=== PATIENT | female | born 1970 | race Caucasian/White ===

== ENCOUNTER 2017-02-17 20:17 | Observation (INO) | payer SELFPAY ==
[2017-02-17] MEDS ORDERED: Sodium Chloride 0.9% 1,000 ML ONE (20:34)
[2017-02-17] MEDS ORDERED: ONDANSETRON 4 MG/2 ML VIAL ONE (20:34)
[2017-02-17] MEDS ORDERED: ONDANSETRON 4 MG/2 ML VIAL IVP ONE (20:35)
[2017-02-17] MEDS ORDERED: HYDROmorphone 2 MG/1 ML IVP ONE (20:35)
[2017-02-17] MEDS ORDERED: Sodium Chloride 0.9% 1,000 ML PRIMARY IV ONE (20:49)
[2017-02-17] MEDS ORDERED: NORMAL SALINE 10 ML SYRINGE FLUSH IVP PRN (20:49)
[2017-02-17 20:57] LABS: BASOPHILS # (AUTO) 0.04 10*3/UL; BASOPHILS % (AUTO) 0.2 % (0-1); EOSINOPHILS # (AUTO) 0.51 10*3/UL; EOSINOPHILS % (AUTO) 2.9 % (0-8); HEMOGLOBIN 15.2 g/dL (12.0-16.0); LYMPHOCYTES # (AUTO) 3.59 10*3/uL; MEAN CORPUSCULAR HEMOGLOBIN 28.7 PG (27-31); MEAN CORPUSCULAR HGB CONC 33.8 g/dL (33-37); MEAN CORPUSCULAR VOLUME 85.1 FL (81-99); MONOCYTES # (AUTO) 0.76 10*3/UL (0.3-0.8); MONOCYTES % (AUTO) 4.3 % (5-15); NEUTROPHILS # (AUTO) 12.56 10*3/UL; NEUTROPHILS % (AUTO) 71.8 % (50-80); RED BLOOD COUNT 5.29 10^6/uL (4.20-5.40)
[2017-02-17 20:59] LABS: PLATELET MORPHOLOGY COMMENT NORMAL MORPHOLOGY (NORM); RBC MORPHOLOGY COMMENT NORMAL MORPHOLOGY (NORM); WBC MORPHOLOGY COMMENT NORMAL MORPHOLOGY (NORM)
[2017-02-17 21:03] LABS: BLOOD UREA NITROGEN 10 mg/dL (7-22); BUN/CREATININE RATIO 16.66 (6-20); CALCIUM 10.1 mg/dL (8.7-10.7); EST GLOMERULAR FILTRATION > 60 (>60 ml/min/1.73m(2)); LIPASE 435 IU/L (23-300); SERUM ALBUMIN 5.3 g/dL (3.5-4.8)
[2017-02-17] MEDS ORDERED: HYDROmorphone 2 MG/1 ML ONE (21:05)
[2017-02-17 21:51] LABS: BILIRUBIN,URINE NEGATIVE (NEG); CLARITY,URINE CLEAR (CLEAR); COLOR,URINE YELLOW; GLUCOSE, URINE (UA) NEGATIVE (NEG); NITRATE,URINE NEGATIVE (NEG); OCCULT BLOOD,URINE NEGATIVE (NEG); PH,URINE 5.5 (5.0-8.5); PROTEIN,URINE NEGATIVE (NEG); URINE SAMPLE TYPE VOIDED SPECIMEN; UROBILINOGEN,URINE 0.2 EU/dL (0.2)
--- NOTE | 2017-02-17 21:54 | DI ---
HISTORY: Abdominal pain. COMPARISON: None available. TECHNIQUE: Multiple helically acquired CT images were obtained through the abdomen and pelvis follow ing the administration of oral and intravenous contrast. FINDINGS: Examination demonstrate fluid throughout the colon. The liver, gallbladder, spleen, adrenals, and kidneys are unremarkable. The urinary bladder is unremarkable. The appendix is normal. There is no significant mesenteric or retroperitoneal lymphadenopathy. The lung bases are clear. Skeletal structures demonstrate some mild degenerative changes at L5/S1. The uterus and ovaries are not well evaluated on this examination. There is a trace amount of free f luid within the deep pelvis adjacent to the right adnexa. IMPRESSION: 1. Trace amount of fluid within the deep pelvis adjacent to the right adnexa most likely representing a recently ruptured right ovarian cyst. 2. Fluid throughout the colon most likely representing diarrhea. NOTIFICATION: The above findings were phoned to Bhavik Holley at 12:00 AM EST on 02/18/2017.
--- NOTE | 2017-02-17 23:15 | DI ---
HISTORY: Right upper quadrant pain. Pancreatitis. TECHNIQUE: Sonographic images of the abdomen were obtained and submitted for interpretation. FINDINGS: There is borderline hepatomegaly. The liver exhibits homogeneous echotexture without discr ete mass. There is no intrahepatic biliary dilatation. The gallbladder is unremarkable. No cholelithiasis is detected. There is no gallbladder wall thickeni ng. No pericholecystic fluid or sonographic García's sign is present. The common duct is not visualiz ed due to shadowing bowel gas. The right kidney exhibits normal sonographic morphology. It measures 13.2 cm in length with no eviden ce of hydronephrosis or shadowing stones. Imaged portions of the pancreas are unremarkable. The abdominal aorta exhibits normal caliber. IMPRESSION: 1. Borderline hepatomegaly in an otherwise unremarkable exam. NOTE: The interpreting Radiologist was not present at the time of ultrasound interrogation.
[2017-02-18] MEDS ORDERED: Insulin Sliding Scale Protocol SUBCUT PRN (00:36)
[2017-02-18] MEDS ORDERED: DEXTROSE 50%-WATER SYRINGE 50 ML SYRINGE IVP PRN (00:36)
[2017-02-18] MEDS ORDERED: NORMAL SALINE 10 ML SYRINGE FLUSH IVP PRN (00:36)
[2017-02-18] MEDS ORDERED: ONDANSETRON 4 MG/2 ML VIAL IVP PRN (00:36)
[2017-02-18] MEDS ORDERED: HYDROmorphone 2 MG/1 ML IVP PRN (00:36)
[2017-02-18] MEDS ORDERED: LIDOCAINE W/ SODIUM BICARB 0.5 ML SYR SUBD PRN (00:36)
[2017-02-18] MEDS ORDERED: Glucagon Inj Vial 1 MG/ML VIAL IM PRN (00:36)
[2017-02-18] MEDS ORDERED: DEXTROSE 31 GM GEL PO PRN (00:36)
[2017-02-18] MEDS ORDERED: fentaNYL Inj 100 MCG/2 ML VIAL IVP PRN (00:56)
[2017-02-18] MEDS: Sodium Chloride 0.9% 1,000 ML PRIMARY IV SCH ×3 (01:19→17:53)
--- NOTE | 2017-02-18 02:33 | PDOC ---
Abdomen/Flank HPI - General Chief Complaint: Abdomen Pain Stated Complaint: Abdomen pain Date Seen by Provider: 02/17/17 Time Seen by Provider: 20:25 Source: POSITIVE: Patient, Spouse Exam Limitations: POSITIVE: No limitations Nurse's Notes Reviewed & Considered: Yes - History of Present Illness Initial Comments: The patient is a 46 year old female. Around 4 PM this afternoon she developed upper abdominal pain, primarily in the right upper abdominal quadrant and epigastrium. Initially the pain was intermittent but it has over the last few hours become persistent and more severe. She states she has also had diarrhea. Nausea but no vomiting. She's had a bilateral tubal ligation and a bladder sling. History of type II diabetes mellitus for which she takes metformin and Trulicity. She last ate at noon and had chicken and rice at that time. No fevers or chills. She takes simvastatin for hypercholesterolemia and losartan for hypertension. She also takes potassium supplements. Body Location Affected: REPORTS: Abdomen Timing: REPORTS: Gradual, Getting Worse Duration: <24 hours (Approximately 7 hours) Severity: Moderate Quality: REPORTS: Aching, "Pain" Abdominal Pain Onset Location: REPORTS: RUQ, Epigastric Abdominal Pain Radiation: REPORTS: No radiation Context: REPORTS: None Modifying Factors: improves with: Nothing Associated Symptoms: REPORTS: Nausea, Diarrhea. DENIES: Denies symptoms, Back pain, Bloody Emesis, Chest pain, Coffee Grounds Emesis, Chills, Diaphoresis, Fever, Fatigue, Headache, Heartburn, Loss of Appetite, Rash, Shortness of breath , Swelling/mass in abdomen, Syncope, Testicular Pain, Vomiting, Weakness, Grossly Bloody Diarrhea, Constipation, Dysuria, Incontinent Stool, Incontinent Urine, Mucous Diarrhea, Difficulty Walking, Dizziness, Light Headedness, Numbness, Other Similar Symptoms Previously: No Recent Care Received: REPORTS: Denies Any Prior Injuries Related to Current Complaint?: No - Patient Home Medications Home Medications: Home Medications Cranberry Extract [Cranberry] 1 tab PO QD cap 05/07/15 [place]-3 Fatty Acids/Fish Oil [[place] 3 Fish Oil Softgel] 2 each PO QD cap Vit W-Ca,Fe,FA(<1 mg) [ Vitamins] 1 tab PO DAILY tab 05/07/15 Dulaglutide [Trulicity] 11/28/15 Blood Sugar Diagnostic [Glucose Test Strip] 1 each IN QID #360 strip 08/15/16 Losartan Potassium 1 tab PO DAILY #90 tab 07/07/16 Metformin HCl 1.5 tab PO BID #270 tab 07/07/16 Simvastatin 1 tab PO QPM #90 tab 07/07/16 - Patient Allergies Allergies/Adverse Reactions: Allergies Allergy/AdvReac Type Severity Reaction Status Date / Time morphine Allergy Severe HIVES Verified 02/17/17 20:24 Sulfa (Sulfonamide Allergy Intermediate HIVES Verified 02/17/17 20:24 Antibiotics) sitagliptin phosphate AdvReac Mild NAUSEA Verified 02/17/17 20:24 [From Jw] BANDAIDS Allergy Mild RASH Uncoded 02/17/17 20:24 Past Medical History - heen HEENT History: Denies History Cardiovascular History: Hypertension Respiratory History: Denies History Gastrointestinal History: Denies History Genitourinary History: Other (please comment) Additional Genitourinary History: PT STATES SHE HAS HAD SEVERAL UTI Endocrine History: Type 2 Diabetes (oral) Musculoskeletal History: Denies History Neurological History: Denies History Blood Disorders: Denies History Psychiatric History: Denies History History of Sexually Transmitted Diseases: No Female Reproductive History: Denies History Obstetrical History: Denies History Cancer History: Denies History In Past Year Been Physically Harmed or Verbally Threatened: No History of MDRO: No History of Other Communicable Diseases: No Tobacco Use: Never Smoker Alcohol Use: None Substance Use Type: None Previous Surgical History: Yes Type / Date of Surgery: BLADDER SLING AND TUBAL LIGATION Anesthesia Reactions: No Malignant Hyperthermia: No Family History of Malignant Hyperthermia: No Significant Family History: No pertinent family hx Past Medical History Reviewed: Reviewed - No Changes ROS - Limitations ROS Limitations: No Limitations Constitution: REPORTS: Denies Symptoms Cardiovascular: REPORTS: Denies Cardiac Symptoms Respiratory: REPORTS: Denies Resp Symptoms Neurological: REPORTS: Denies Neuro Symptoms Gastrointestinal: REPORTS: Abdominal Pain, Nausea, Diarrhea Endocrine: REPORTS: Denies Symptoms Musculoskeletal: REPORTS: Denies MS Symptoms Genitourinary: REPORTS: Denies Symptoms Eyes: REPORTS: Denies Symptoms ENT: REPORTS: Denies Symptoms Skin: REPORTS: Denies Skin Symptoms Lympathic: REPORTS: Denies Lympathic Symptoms Immunologic: POSITIVE: Denies Symptoms Psychiatric: POSITIVE: Denies Psych Symptoms Abdominal/Flank Pain PE - General Appearance General Appearance: POSITIVE: Alert, Cooperative, No Evidence of Trauma, Moderate Distress - HEENT HEENT: POSITIVE: Head Inspection Nml, Eyes Inspection Nml, Ears Inspection Nml, Nose Inspection Nml, Oral/Dental Inspect. Nml, Pharynx Inspect. Nml, PERRL, EOMI - Neck Neck: POSITIVE: Normal Inspection, No Apparent Injury - Respiratory Respiratory: POSITIVE: No Respiratory Distress, Breath Sounds Normal, Chest Non- Tender - Cardiovascular Cardiovascular: POSITIVE: Regular Rate and Rhythm, Heart Sounds Normal, Equal Pulses, Strong Pulses Peripheral Pulses: Radial (R): 2+, Radial (L): 2+ - Chest Chest: POSITIVE: Non Tender - Abdomen Abdomen: Soft: (All Quadrants), Normal Bowel Sounds: (All Quadrants), Denies Tenderness: (LLQ), (LUQ), No Splenomegaly: (All Quadrants), No Hepatomegaly: ( All Quadrants), No Guarding: (All Quadrants), No Rebound: (All Quadrants), No Palpable Pulse: (All Quadrants), No Palpabale Mass: (All Quadrants), No Distention: (All Quadrants), No Rigidity: (All Quadrants), Tenderness Noted: ( RUQ) (and epigastrium) Additional Abdominal Details: Abdominal examination shows bowel sounds to be active. Patient does express pain on direct palpation over the right upper quadrant of the abdomen and epigastrium. No masses, organomegaly or rebound. - Back Back: POSITIVE: Normal Inspection - Skin Skin: POSITIVE: Intact, Normal For Race, Warm, Dry, No Rash - Extremities Extremity: Non-Tender: (All Extremities), Normal ROM: (All Extremities), Normal Inspection: (All Extremities) - Neurological Neurological: POSITIVE: Oriented X3, last trimmer Normal As Tested, Motor Normal, Sensation Normal, 5, 6 - Psychological Psychiatric: POSITIVE: Affect Appropriate, Mood Appropriate Images - Complete Complete: 1 - Area of pain Abdomen Progress - Results Reviewed by me Xrays/CTs/US Reviewed by me: Yes Discussed with Radiologist: Yes Radiology Findings: CT scan of abdomen and pelvis shows no definite abnormality except possibly a ruptured ovarian cyst. Right upper quadrant ultrasound shows no gallstones. Lab Results Reviewed: Yes (amylase, lipase, and white blood cell count all elevated) Lab Results:: Laboratory Results 02/17/17 02/17/17 Range/Units 20:35 21:48 WBC 17.51 H (4.8-10.8) 10^3/uL RBC 5.29 (4.20-5.40) 10^6/uL Hgb 15.2 (12.0-16.0) g/dL Hct 45.0 (37.0-47.0) % MCV 85.1 (81-99) FL MCH 28.7 (27-31) PG MCHC 33.8 (33-37) g/dL RDW Std Deviation 43.1 (39-50) fL RDW Coeff of [place]rend[place] 14.0 (11.5-14.5) % Plt Count 357 H (140-350) 10*3/uL MPV 10.0 (7.4-12.2) FL Immature Gran % (Auto) 0.3 (0-5) % Neut % (Auto) 71.8 (50-80) % Lymph % (Auto) 20.5 (10-50) % [place] % (Auto) 4.3 L (5-15) % Eos % (Auto) 2.9 (0-8) % Baso % (Auto) 0.2 (0-1) % Immature Gran # (Auto) 0.05 10*3/UL Neut # (Auto) 12.56 10*3/UL Lymph # (Auto) 3.59 10*3/uL [place] # (Auto) 0.76 (0.3-0.8) 10*3/UL Eos # (Auto) 0.51 10*3/UL Baso # (Auto) 0.04 10*3/UL WBC Morphology Comment Normal morphology (NORM) Plt Morphology Comment Normal morphology (NORM) RBC Morph Comment Normal morphology (NORM) Sodium 139 (135-145) meq/L Potassium 3.9 (3.8-5.2) meq/L Chloride 99 (98-112) meq/L Carbon Dioxide 23 (23-33) meq/L Anion Gap 17 (5-20) BUN 10 (7-22) mg/dL Creatinine 0.6 (0.50-1.20) mg/dL Estimated GFR > 60 (>60 ml/min/1.73m(2)) BUN/Creatinine Ratio 16.66 (6-20) Glucose 138 H (78-110) mg/dL Calculated Osmolality 288.0 (267-292) mOsm/kg Calcium 10.1 (8.7-10.7) mg/dL Total Bilirubin 0.6 (0.3-1.2) mg/dL AST 23 (8-39) IU/L ALT 24 (9-52) IU/L Alkaline Phosphatase 80 (38-126) IU/L Total Protein 9.6 H (6.1-8.0) g/dL Albumin 5.3 H (3.5-4.8) g/dL Globulin 4.3 H (2.50-4.10) g/dL Albumin/Globulin Ratio 1.20 L (1.3-2.0) mg/g Amylase 113 H (30-110) U/L Lipase 435 H (23-300) IU/L Serum HCG, Qual Negative Ur Collection Type Voided specimen Urine Color Yellow Urine Clarity Clear (CLEAR) Urine pH 5.5 (5.0-8.5) Ur Specific [place] <=1.005 (1.005-1.030) Urine Protein Negative (NEG) mg/dl Urine Glucose (UA) Negative (NEG) mg/dL Urine Ketones Negative (NEG) Urine Occult Blood Negative (NEG) Urine Nitrate Negative (NEG) Urine Bilirubin Negative (NEG) Urine Urobilinogen 0.2 (0.2) EU/dL Ur Leukocyte Esterase Negative (NEG) Ur Culture Indicated? Culture not set - Patient's Progress Pain Medication Addressed: POSITIVE: Yes (Dilaudid, 0.5 mg IV) School/Work Release Addressed: POSITIVE: Not Applicable Re-examine Time: 23:50 Status: POSITIVE: Unchanged, Re-Examined - Consult Consult (If Yes, Name of Consulting MD & Time Called): Yes (Dr. Jimenes, hospitalist,0001) Consulting MD will see pt:: POSITIVE: [facility] Admit Counseled: POSITIVE: Patient, Family, RE: Lab Results, RE: Radiology Results, RE : DX, RE: Need for F/U Patient Care Time - Estimated PCT Patient Care Time (In Minutes): 40 Vital Signs - Recent Vital Signs Vital Signs: Vital Signs (Last 8 hours) Temp Pulse Pulse Resp BP BP BP 02/18/17 00:48 98.5 F 97 18 123/86 02/18/17 00:36 97 18 03/29/17 00:30 98.5 F 96 16 103/78 02/17/17 20:21 98.3 F 90 20 138/79 Pulse Ox 02/18/17 00:48 96 02/18/17 00:36 02/18/17 00:30 95 02/17/17 20:21 97 - VS Reviewed Vital Signs Reviewed: Yes Discharge Clinical Impression: Pancreatitis, Diabetes mellitus, Diarrhea Discharge Disposition: Admit to Inpatient Condition: Good Date Decision to Admit to Inpatient: 02/17/17 Time Decision to Admit to Inpatient: 23:50
[2017-02-18 04:46] LABS: BASOPHILS # (AUTO) 0.02 10*3/UL; BASOPHILS % (AUTO) 0.2 % (0-1); EOSINOPHILS # (AUTO) 0.33 10*3/UL; EOSINOPHILS % (AUTO) 3.5 % (0-8); HEMATOCRIT 36.2 % (37.0-47.0); HEMOGLOBIN 12.3 g/dL (12.0-16.0); LYMPHOCYTES # (AUTO) 0.86 10*3/uL; MEAN CORPUSCULAR HEMOGLOBIN 28.9 PG (27-31); MEAN CORPUSCULAR VOLUME 85.2 FL (81-99); MEAN PLATELET VOLUME 10.9 FL (7.4-12.2); MONOCYTES # (AUTO) 0.34 10*3/UL (0.3-0.8); MONOCYTES % (AUTO) 3.7 % (5-15); NEUTROPHILS # (AUTO) 7.73 10*3/UL; NEUTROPHILS % (AUTO) 83.1 % (50-80); RED BLOOD COUNT 4.25 10^6/uL (4.20-5.40)
[2017-02-18 04:52] LABS: PLATELET MORPHOLOGY COMMENT NORMAL MORPHOLOGY (NORM); RBC MORPHOLOGY COMMENT NORMAL MORPHOLOGY (NORM); WBC MORPHOLOGY COMMENT NORMAL MORPHOLOGY (NORM)
[2017-02-18 05:44] LABS: BLOOD UREA NITROGEN 12 mg/dL (7-22); CALCIUM 8.1 mg/dL (8.7-10.7); EST GLOMERULAR FILTRATION > 60 (>60 ml/min/1.73m(2)); LIPASE 265 IU/L (23-300); SERUM ALBUMIN 3.8 g/dL (3.5-4.8)
[2017-02-18] MEDS: ACETAMINOPHEN 325 MG TABLET PO PRN ×2 (07:02→16:57)
[2017-02-18] MEDS: Insulin Lispro Flexpen 300 UNIT/3 ML INSULN.PEN SUBCUT SCH ×3 (07:17→16:27)
--- NOTE | 2017-02-18 11:00 | PDOC ---
History and Physical - History of Present Illness Date and Time of Service: 02/18/2017, 10:58 AM Chief Complaint: Abdominal pain and diarrhea History of Present Illness: This very pleasant 46-year-old female with underlying diabetes mellitus type II , history of ovarian cysts, who presents with abdominal pain. She presented late last night after having right upper and mid right sided abdominal pain. She stated it was quite severe and sharp in nature. The patient's lipase was elevated and she is on trulicity. She does not drink alcohol, and her ultrasound was negative for gallbladder or so I am told. I do not have the official ultrasound report to review at this point. A CT scan of the abdomen and pelvis was done, and it showed fluid-filled colon and fluid consistent with a ruptured adnexal cyst on the right side. The patient states to me that she gets ruptured cyst primary much on a monthly basis. Sometimes a double her over in pain and sometimes they don't. She states that that is a fairly normal occurrence and she thought this might be an ruptured cyst last night. The pain was quite severe and the patient had had some diarrhea and nausea that had been persistent over about a 2 to three-day period of time. No fevers but did feel chilled. Her white count was elevated but is normal this morning. She states the diarrhea is slowing down and feels much better. She is hungry and wants to eat this morning. She is on well water out in [place], [place]. I tested her C. difficile and her cryptosporidia and Giardia and all the studies were negative. This morning, she has no pain in her lipase was found to be normal. There was no evidence of pancreatic swelling or inflammation on the CT scan either on my view or on the report from the radiologist. The patient has been on trulicity for 2 years. It was presumed that the patient may have had pancreatitis due to that medication because of the mildly elevated lipase. Past Medical History Medical History: 1. Diabetes mellitus type II. 2. Ovarian cysts. 3. Hypertension. 4. Hypercholesteremia Surgical History: 1. Tubal ligation. 2. Bladder sling. 3. Cataracts bilaterally Pertinent Family History: Significant for diabetes and heart disease in her parents Past Social History: Does not smoke or drink. Has 4 children. . 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 Tobacco Use: Never Smoker Substance Use Type: None Alcohol Use: None Medication / Allergies Home Medications: Home Medications Medication Instructions Recorded Confirmed Type Cranberry Extract [Cranberry] 1 tab PO QD cap 05/07/15 02/17/17 History [place]-3 Fatty Acids/Fish Oil 2 each PO QD cap 05/07/15 02/17/17 History [[place] 3 Fish Oil Softgel] Vit W-Ca,Fe,FA(<1 mg) 1 tab PO DAILY tab 05/07/15 02/17/17 History [ Vitamins] Dulaglutide [Trulicity] 11/28/15 History Blood Sugar Diagnostic [Glucose 1 each IN QID #360 strip 07/07/16 Clinic Test Strip] Losartan Potassium 1 tab PO DAILY #90 tab 07/07/16 02/17/17 Clinic Metformin HCl 1.5 tab PO BID #270 tab 07/07/16 02/17/17 Clinic Simvastatin 1 tab PO QPM #90 tab 07/07/16 Clinic Allergies/Adverse Reactions: Allergies Allergy/AdvReac Type Severity Reaction Status Date / Time morphine Allergy Severe HIVES Verified 02/18/17 06:42 Sulfa (Sulfonamide Allergy Intermediate HIVES Verified 02/18/17 06:42 Antibiotics) sitagliptin phosphate AdvReac Mild NAUSEA Verified 02/18/17 06:42 [From Januvia] BANDAIDS Allergy Mild RASH Uncoded 02/18/17 06:42 Review of Systems - Review of Systems All Systems: Reviewed & No Additional Complaints Except as Stated (I did a 12 point review systems and it was negative other than that stated in history present illness and that noted below.) - Constitutional Constitutional: REPORTS: Fever/Chills (No fevers. Chills alone.) - Respiratory Respiratory: REPORTS: Negative System Review - Cardiovascular Cardiovascular: REPORTS: Negative System Review - Gastrointestinal Gastrointestinal / Abdominal: REPORTS: Nausea, Diarrhea - Genitourinary Genitourinary: REPORTS: Other (History of bladder sling) - Gynecological : 5 Para: 4 Contraception: Yes (tubal ligation) - Musculoskeletal Musculoskeletal: REPORTS: Negative System Review - Hematlogic / Lymphatic Hematologic / Lymphatic: REPORTS: Negative System Review - Neurological Neurologic: REPORTS: Headache (Recurrent headaches) Exam - Vitals Vital Signs: Vital Signs Temperature 98 F Temperature Source Temporal Artery Scan Pulse Rate [Pulse Oximeter] 106 Pulse Rate 96 Respiratory Rate 18 Blood Pressure [Right Arm] 125/87 Blood Pressure 103/78 Pulse Ox 94 Oxygen Flow Rate 1 Oxygen Delivery Method Room Air Height 5 ft 5 in Weight 175 lb 9.6 oz - General General Appearance: POSITIVE: No Acute Distress, Cooperative - Head Head Exam: POSITIVE: Normal Inspection, Normocephalic, Atraumatic - Eye Eye Exam: POSITIVE: No Scleral Icterus - ENT ENT Exam: POSITIVE: Mucous Membranes Moist - Neck Neck Exam: POSITIVE: Normal Inspection, No Tenderness, No Thyromegaly - Respiratory Respiratory Exam: POSITIVE: Clear to Auscultation - Bilaterally, Breathing Non Labored, Normal to Percussion and Palpation - Cardiovascular Cardiovascular Exam: POSITIVE: RRR, No Murmur, No Clicks, No Gallops, No Rubs, No JVD Results - Labs CBC and BMP: 02/18/17 04:21 02/18/17 04:21 Labs - Last 24 Hours: Laboratory Results 02/18/17 Range/Units 04:21 WBC 9.31 (4.8-10.8) 10^3/uL RBC 4.25 (4.20-5.40) 10^6/uL Hgb 12.3 (12.0-16.0) g/dL Hct 36.2 L (37.0-47.0) % MCV 85.2 (81-99) FL MCH 28.9 (27-31) PG MCHC 34.0 (33-37) g/dL RDW Std Deviation 42.7 (39-50) fL RDW Coeff of [place]rend[place] 13.9 (11.5-14.5) % Plt Count 199 (140-350) 10*3/uL MPV 10.9 (7.4-12.2) FL Immature Gran % (Auto) 0.3 (0-5) % Neut % (Auto) 83.1 H (50-80) % Lymph % (Auto) 9.2 L (10-50) % [place] % (Auto) 3.7 L (5-15) % Eos % (Auto) 3.5 (0-8) % Baso % (Auto) 0.2 (0-1) % Immature Gran # (Auto) 0.03 10*3/UL Neut # (Auto) 7.73 10*3/UL Lymph # (Auto) 0.86 10*3/uL [place] # (Auto) 0.34 (0.3-0.8) 10*3/UL Eos # (Auto) 0.33 10*3/UL Baso # (Auto) 0.02 10*3/UL WBC Morphology Comment Normal morphology (NORM) Plt Morphology Comment Normal morphology (NORM) RBC Morph Comment Normal morphology (NORM) Sodium 136 (135-145) meq/L Potassium 4.0 (3.8-5.2) meq/L Chloride 104 (98-112) meq/L Carbon Dioxide 21 L (23-33) meq/L Anion Gap 11 (5-20) BUN 12 (7-22) mg/dL Creatinine 0.6 (0.50-1.20) mg/dL Estimated GFR > 60 (>60 ml/min/1.73m(2)) BUN/Creatinine Ratio 20.00 (6-20) Glucose 163 H (78-110) mg/dL Calculated Osmolality 285.0 (267-292) mOsm/kg Calcium 8.1 L (8.7-10.7) mg/dL Total Bilirubin 0.7 (0.3-1.2) mg/dL AST 13 (8-39) IU/L ALT 22 (9-52) IU/L Alkaline Phosphatase 51 (38-126) IU/L Total Protein 6.7 (6.1-8.0) g/dL Albumin 3.8 (3.5-4.8) g/dL Globulin 2.9 (2.50-4.10) g/dL Albumin/Globulin Ratio 1.30 (1.3-2.0) mg/g Lipase 265 (23-300) IU/L - Imaging Status: Image Reviewed by Me (I looked at the CT scan of the abdomen and pelvis. There is a significant amount of fluid throughout the gastrointestinal system. In addition, the pancreas on my view appeared normal. 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 IV fluids. Pain medications and anti-medics. Stop trulicity and I think we should just remain off of that. I don't think it caused pancreatitis in this situation, but given the biochemically elevated lipase, it could be that the patient might have headed in that direction so it' s probably safest just to stop it. Hopefully diet and exercise changes can help the patient in addition to her metformin at home. Hold off on metformin for at least [address] study Diabetes management with insulin during the hospital stay. If patient tolerates lunch and dinner, probably home later tonight. In terms of the ovarian cysts, patient is not interested in oral contraceptives , and she is not interested in pursuing surgical therapy to prevent these. She may benefit from a pelvic ultrasound as she could have polycystic ovarian syndrome, but that is not supported by her fertility. Will defer this to the primary care provider, Dr. Cowan.
[2017-02-18] MEDS ORDERED: ACETAMINOPHEN 325 MG TABLET PO ONE (16:56)
--- NOTE | 2017-02-18 18:49 | DCSUMMARY ---
Hospitalization Summary Admit Date: 02/18/17 Discharge Date: 02/18/17 Primary Diagnosis:: gastroenteritis, resolved Secondary Diagnosis:: Ruptured ovarian cyst right side Hospital Course: This very pleasant 46-year-old female that presented last night with complaints of abdominal pain, and diarrhea. Her dull pain was quite severe, right sided and along the right flank, and her lipase was slightly elevated. However there was no evidence of pancreatitis on CT scan. The patient was admitted for observation, and her symptoms improved with IV fluids, pain medications, and antiemetics. We were able to advance her diet to regular diet and she tolerated both lunch and dinner, having chicken noodle soup and salad for dinner and had no return of any symptoms. Her abdominal pain is completely resolved. Her diarrhea has resolved. The diarrhea was negative for infectious etiologies such as Giardia, cryptosporidia, and C. difficile. At the time of discharge, the patient had no completes of abdominal pain, no chest pain, no shortness breath and she was "ready to go home". Given the elevated lipase, we felt it would be best to stop to the city and the patient agreed with that plan. She will discuss with her primary care provider and we will try to get her in with Dr. Cowan sometime in the next week. Assessment and Plan: 1. As per discharge assessments noted 2. Disposition: Patient is discharged home. 3. Condition on discharge, stable and improved. 4. Diet: regular diet 5. Activities: resume normal activities 6. Follow-Up: 1. Dr. Cowan one week. 2. 7. Medications at the Time of Discharge: Home Medications Medication Instructions Recorded Confirmed Type Cranberry Extract [Cranberry] 1 tab PO QD cap 05/07/15 02/17/17 History [place]-3 Fatty Acids/Fish Oil 2 each PO QD cap 05/07/15 02/17/17 History [[place] 3 Fish Oil Softgel] Vit W-Ca,Fe,FA(<1 mg) 1 tab PO DAILY tab 05/07/15 02/17/17 History [ Formula] Blood Sugar Diagnostic [Glucose 1 each IN QID #360 strip 07/07/16 Clinic Test Strip] Losartan Potassium 1 tab PO DAILY #90 tab 07/07/16 02/17/17 Clinic Metformin HCl 1.5 tab PO BID #270 tab 07/07/16 02/17/17 Clinic Simvastatin 1 tab PO QPM #90 tab 07/07/16 Clinic Note the patient did not feel she needed any antiemetics leaving the hospital. 8. Time, care, counseling and coordination of care for this discharge is greater than 30 minutes. I Exam - Vitals Vital Signs: Vital Signs Temperature 98.8 F Temperature Source Temporal Artery Scan Pulse Rate [Pulse Oximeter] 97 Pulse Rate 96 Respiratory Rate 18 Blood Pressure [Right Arm] 118/77 Blood Pressure 103/78 Pulse Ox 94 Oxygen Flow Rate 1 Oxygen Delivery Method Room Air Height 5 ft 5 in Weight 175 lb 9.6 oz - General General Appearance: POSITIVE: No Acute Distress, Cooperative - Head Head Exam: POSITIVE: Normal Inspection, Normocephalic, Atraumatic - Eye Eye Exam: POSITIVE: No Scleral Icterus - Respiratory Respiratory Exam: POSITIVE: Clear to Auscultation - Bilaterally, Breathing Non Labored - Cardiovascular Cardiovascular Exam: POSITIVE: RRR, No Murmur, No Clicks, No Gallops, No Rubs - GI/Abdominal GI/Abdominal Exam: POSITIVE: Normal Bowel Sounds, Non Tender, Non Distended, Soft - Neurological Neurological Exam: POSITIVE: Alert, Oriented x 3, No Facial Droop, Speech Intact / Clear, Moves All Extremities Equally Data Perinent Studies: Laboratory Results 02/17/17 02/17/17 02/18/17 Range/Units 20:35 21:48 04:21 WBC 17.51 H 9.31 (4.8-10.8) 10^3/uL RBC 5.29 4.25 (4.20-5.40) 10^6/uL Hgb 15.2 12.3 (12.0-16.0) g/dL Hct 45.0 36.2 L (37.0-47.0) % MCV 85.1 85.2 (81-99) FL MCH 28.7 28.9 (27-31) PG MCHC 33.8 34.0 (33-37) g/dL RDW Std Deviation 43.1 42.7 (39-50) fL RDW Coeff of Brendon 14.0 13.9 (11.5-14.5) % Plt Count 357 H 199 (140-350) 10*3/uL MPV 10.0 10.9 (7.4-12.2) FL Immature Gran % (Auto) 0.3 0.3 (0-5) % Neut % (Auto) 71.8 83.1 H (50-80) % Lymph % (Auto) 20.5 9.2 L (10-50) % [place] % (Auto) 4.3 L 3.7 L (5-15) % Eos % (Auto) 2.9 3.5 (0-8) % Baso % (Auto) 0.2 0.2 (0-1) % Immature Gran # (Auto) 0.05 0.03 10*3/UL Neut # (Auto) 12.56 7.73 10*3/UL Lymph # (Auto) 3.59 0.86 10*3/uL [place] # (Auto) 0.76 0.34 (0.3-0.8) 10*3/UL Eos # (Auto) 0.51 0.33 10*3/UL Baso # (Auto) 0.04 0.02 10*3/UL WBC Morphology Comment Normal morphology Normal morphology (NORM) Plt Morphology Comment Normal morphology Normal morphology (NORM) RBC Morph Comment Normal morphology Normal morphology (NORM) Sodium 139 136 (135-145) meq/L Potassium 3.9 4.0 (3.8-5.2) meq/L Chloride 99 104 (98-112) meq/L Carbon Dioxide 23 21 L (23-33) meq/L Anion Gap 17 11 (5-20) BUN 10 12 (7-22) mg/dL Creatinine 0.6 0.6 (0.50-1.20) mg/dL Estimated GFR > 60 > 60 (>60 ml/min/1.73m(2)) BUN/Creatinine Ratio 16.66 20.00 (6-20) Glucose 138 H 163 H (78-110) mg/dL Calculated Osmolality 288.0 285.0 (267-292) mOsm/kg Calcium 10.1 8.1 L (8.7-10.7) mg/dL Total Bilirubin 0.6 0.7 (0.3-1.2) mg/dL AST 23 13 (8-39) IU/L ALT 24 22 (9-52) IU/L Alkaline Phosphatase 80 51 (38-126) IU/L Total Protein 9.6 H 6.7 (6.1-8.0) g/dL Albumin 5.3 H 3.8 (3.5-4.8) g/dL Globulin 4.3 H 2.9 (2.50-4.10) g/dL Albumin/Globulin Ratio 1.20 L 1.30 (1.3-2.0) mg/g Amylase 113 H (30-110) U/L Lipase 435 H 265 (23-300) IU/L Serum HCG, Qual Negative Ur Collection Type Voided specimen Urine Color Yellow Urine Clarity Clear (CLEAR) Urine pH 5.5 (5.0-8.5) Ur Specific [place] <=1.005 (1.005-1.030) Urine Protein Negative (NEG) mg/dl Urine Glucose (UA) Negative (NEG) mg/dL Urine Ketones Negative (NEG) Urine Occult Blood Negative (NEG) Urine Nitrate Negative (NEG) Urine Bilirubin Negative (NEG) Urine Urobilinogen 0.2 (0.2) EU/dL Ur Leukocyte Esterase Negative (NEG) Ur Culture Indicated? Culture not set Patient Problems - Patient Problem List (1) Gastroenteritis Current Visit: Yes Status: Acute (2) Diabetes mellitus Current Visit: Yes Status: Acute Qualifiers: Diabetes mellitus type: type 2 Diabetes mellitus complication status: without complication Diabetes mellitus termination clerk insulin use: without termination clerk use Qualified Description: Type 2 diabetes mellitus without complication, without long-term current use of insulin Qualifier Code(s): (E11.9) Type 2 diabetes mellitus without complications (3) Ruptured ovarian cyst Current Visit: Yes Status: Acute (4) Hypertension Current Visit: Yes Status: Acute (5) Hypercholesterolemia Current Visit: Yes Status: Acute
[2017-02-18 18:58] VITALS: RESP 20; TEMP 98.9
== END 2017-02-18 19:09 | disposition home or self-care (01) ==
LOC: ER 20:17 → MED/SURG 23:41 → UNDOADMIN 23:43 → MED/SURG 23:43 → UNDODISOB 02-18 19:09
PROVIDERS: ADMIT Family Medicine; ATTEND Family Medicine
DX: K52.9 Noninfective gastroenteritis and colitis, unspecified (principal); N83.201 Unspecified ovarian cyst, right side; E11.9 Type 2 diabetes mellitus without complications; I10 Essential (primary) hypertension; E78.00 Pure hypercholesterolemia, unspecified
CPT/HCPCS: 36415; 74177; 76705; 80053 ×2; 81003; 82150; 82948; 83690 ×2; 84703; 85025 ×2; 87328; 87329; 87493; 94761; 96361; 96374; 96375; 99284 ×2; J1815; J3010; J1170; J2405; J7030

== ENCOUNTER 2018-11-09 21:23 | Inpatient (IN) ==
[2018-11-09] MEDS ORDERED: Sodium Chloride 0.9% 1,000 ML PRIMARY IV ONE ×3 (21:30→22:40)
[2018-11-09] MEDS ORDERED: ONDANSETRON 4 MG/2 ML VIAL IVP ONE (21:31)
--- NOTE | 2018-11-09 21:38 | PDOC ---
Nausea/Vomiting/Diarrhea HPI - General Chief Complaint: Nausea / Vomiting / Diarrhea Stated Complaint: ABD. PAIN N/V/D Date Seen by Provider: 11/09/18 Time Seen by Provider: 21:28 Source: POSITIVE: Patient Exam Limitations: POSITIVE: No limitations Nurse's Notes Reviewed & Considered: Yes - History of Present Illness Initial Comments: Patient presents to ED with complaint of 6 days of nausea, vomiting and abdominal pain. Patient states the pain got much worse earlier today. Patient has history of diabetes and she has been noncompliant with her medication regimen because she has not been able to afford her medications. Patient states he pain became much worse this morning after vomiting and she was unable to eat after that point. Denies fevers. + Chills. decreased urine output. Body Location Affected: REPORTS: Abdomen Timing: REPORTS: Constant, Gradual Duration: <1 week (patients pain has been going on for 6 days but became much worse today) Severity: Severe Quality: REPORTS: "Pain", Sharpness, Stabbing Abdominal Pain Onset Location: REPORTS: Generalized abdomen Abdominal Pain Radiation: REPORTS: No radiation Context: REPORTS: Other (Patient states she had nausea/vomiting and diarrhea a week ago when these symptoms started) Modifying Factors: improves with: Other (symptoms worsen with nausea/vomiting) Associated Symptoms: REPORTS: Vomiting, Diarrhea (patient had diarrhea initially but no longer has diarrhea today) - Patient Home Medications Home Medications: Home Medications Cranberry Fruit Extract [Cranberry] 1 tab PO QD cap 05/07/15 [place]-3 Fatty Acids/Fish Oil [[place] 3 Fish Oil Softgel] 2 ea PO QD cap 05/07/15 Vit W-Ca,Fe,FA(<1 mg) [ Formula] 1 tab PO DAILY tab 05/07/15 Blood Sugar Diagnostic [Glucose Test Strip] 1 ea IN QID #360 strip 07/07/16 Losartan Potassium 1 tab PO DAILY #90 tab 07/07/16 Metformin HCl 1.5 tab PO BID #270 tab 07/07/16 Simvastatin 1 tab PO QPM #90 tab 07/07/16 Dulaglutide [Trulicity] 0.5 ml SQ WEEKLY #4 ea 06/11/17 amoxicillin 875 mg-potassium clavulanate 125 mg tablet 1 tab PO BID #20 tab 03/03/18 codeine 10 mg-guaifenesin 100 mg/5 mL oral liquid 5 ml PO Q6H PRN #120 ml 04/11/18 prednisone 20 mg tablet 20 mg PO QDAY #7 tab 03/03/18 - Patient Allergies Allergies/Adverse Reactions: Allergies 3 Allergy/AdvReac Type Severity Reaction Status Date / Time morphine Allergy Severe HIVES Verified 03/03/18 10:18 Sulfa (Sulfonamide Allergy Intermediate HIVES Verified 03/03/18 10:18 Antibiotics) sitagliptin phosphate AdvReac Mild NAUSEA Verified 03/03/18 10:18 [From Jw] BANDAIDS Allergy Mild RASH Uncoded 03/03/18 10:18 Past Medical History - heen HEENT History: Denies History Cardiovascular History: Hypertension Respiratory History: Denies History Gastrointestinal History: Denies History Genitourinary History: Other (please comment) Additional Genitourinary History: PT STATES SHE HAS HAD SEVERAL UTI Endocrine History: Type 2 Diabetes (oral) Musculoskeletal History: Denies History Neurological History: Denies History Blood Disorders: Denies History Psychiatric History: Denies History History of Sexually Transmitted Diseases: No Cancer History: Denies History History of MDRO: No History of Other Communicable Diseases: No Alcohol Use: None In the Past 12 Months, Have Used or Abuse Any Substance: None Previous Surgical History: Yes Type / Date of Surgery: BLADDER SLING AND TUBAL LIGATION Anesthesia Reactions: No Malignant Hyperthermia: No Significant Family History: No pertinent family hx ROS - Limitations ROS Limitations: Clinical Condition Constitution: REPORTS: Chills, Diaphoresis. DENIES: Fever Cardiovascular: REPORTS: Heart Racing. DENIES: Chest Pain, Heart Palpitations Respiratory: REPORTS: Denies Resp Symptoms Neurological: REPORTS: Denies Neuro Symptoms Gastrointestinal: REPORTS: Abdominal Pain, Nausea, Vomitting, Diarrhea. DENIES: Constipation Endocrine: REPORTS: Elevated Glucose Musculoskeletal: REPORTS: Denies MS Symptoms Genitourinary: REPORTS: Dysuria, Flank Pain. DENIES: Hematuria Eyes: REPORTS: Denies Symptoms ENT: REPORTS: Denies Symptoms Skin: REPORTS: Denies Skin Symptoms Lympathic: REPORTS: Denies Lympathic Symptoms Immunologic: POSITIVE: Denies Symptoms Psychiatric: POSITIVE: Denies Psych Symptoms Nausea/Vomiting/Diarrhea Exam - General Appearance General Appearance: POSITIVE: Alert, Cooperative, Moderate Distress - HEENT HEENT: POSITIVE: Head Inspection Nml, Eyes Inspection Nml, Ears Inspection Nml, Nose Inspection Nml, Oral/Dental Inspect. Nml, Pharynx Inspect. Nml, PERRL, EOMI, Dry Mucous Membranes - Neck Neck: POSITIVE: Supple, Normal Inspection, Non Tender. NEGATIVE: Lymphadenopathy, Stiff Neck, Meningismus - Respiratory Respiratory: POSITIVE: No Respiratory Distress, Breath Sounds Normal, Chest Non- Tender - Cardiovascular Cardiovascular: POSITIVE: Heart Sounds Normal, Tachycardia Peripheral Pulses: Radial (R): 2+, Radial (L): 2+, Dorsalis-pedis (R): 2+, Dorsalis-pedis (L): 2+ - Chest Chest: POSITIVE: Non Tender - Abdomen Abdomen: Tenderness Noted: (All Quadrants), Guarding: (All Quadrants), Rebound: (All Quadrants), Rigid: (All Quadrants) - Back Back: POSITIVE: Normal Inspection - Skin Skin: POSITIVE: Intact, Normal For Race, Warm, Dry - Extremities Extremity: Non-Tender: (All Extremities), Normal ROM: (All Extremities), Normal Inspection: (All Extremities) - Neurological / Psychological Neurological: POSITIVE: Affect Apporpriate, Oriented X3, 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 No abscess. Lab Results Reviewed by Me: Yes CBC and BMP: 11/09/18 21:45 11/09/18 21:45 Lab Results:: Laboratory Results 11/09/18 11/09/18 11/09/18 10:45 21:45 21:45 WBC 8.44 RBC 5.55 H Hgb 15.9 Hct 46.5 MCV 83.8 MCH 28.6 MCHC 34.2 RDW Std Deviation 41.0 RDW Coeff of Brendon 13.3 Plt Count 357 H MPV 10.3 Immature Gran % (Auto) 0.2 Neut % (Auto) 70.1 Lymph % (Auto) 25.1 [place] % (Auto) 4.3 L Eos % (Auto) 0.1 Baso % (Auto) 0.2 Immature Gran # (Auto) 0.02 Neut # (Auto) 5.91 Lymph # (Auto) 2.12 [place] # (Auto) 0.36 Eos # (Auto) 0.01 Baso # (Auto) 0.02 WBC Morphology Comment Normal morphology Plt Morphology Comment Normal morphology RBC Morph Comment Normal morphology VBG pH VBG pCO2 VBG HCO3 VBG Base Excess Sodium 136 Potassium 3.4 L Chloride 98 Carbon Dioxide 17 L Anion Gap 21 H BUN 6 L Creatinine 0.6 Estimated GFR > 60 BUN/Creatinine Ratio 10.00 Glucose 441 H* Calculated Osmolality 298.0 H Lactic Acid Calcium 9.8 Total Bilirubin 0.9 AST 19 ALT 23 Alkaline Phosphatase 143 H Total Protein 8.9 H Albumin 4.9 H Globulin 4.0 Albumin/Globulin Ratio 1.20 L Ur Collection Type Voided specimen Urine Color Yellow Urine Clarity Clear Urine pH 5.0 Ur Specific [place] 1.015 Urine Protein 100 A Urine Glucose (UA) 500 Urine Ketones >=160 Urine Occult Blood Trace-lysed H Urine Nitrate Negative Urine Bilirubin Negative Urine Urobilinogen 0.2 Ur Leukocyte Esterase Negative Urine RBC 1-3 Urine WBC 1-3 Ur Squamous Epith Cells Moderate Ur Renal Epithelial Cell None Urine Crystals None Urine Bacteria Few Urine Casts None Urine Mucus None Urine Trichomonas None Urine Yeast None Ur Culture Indicated? Culture not set 11/09/18 11/09/18 21:46 22:16 WBC RBC Hgb Hct MCV MCH MCHC RDW Std Deviation RDW Coeff of Brendon Plt Count MPV Immature Gran % (Auto) Neut % (Auto) Lymph % (Auto) [place] % (Auto) Eos % (Auto) Baso % (Auto) Immature Gran # (Auto) Neut # (Auto) Lymph # (Auto) [place] # (Auto) Eos # (Auto) Baso # (Auto) WBC Morphology Comment Plt Morphology Comment RBC Morph Comment VBG pH 7.31 L VBG pCO2 32 L VBG HCO3 16 L VBG Base Excess -10 L Sodium Potassium Chloride Carbon Dioxide Anion Gap BUN Creatinine Estimated GFR BUN/Creatinine Ratio Glucose Calculated Osmolality Lactic Acid 1.4 Calcium Total Bilirubin AST ALT Alkaline Phosphatase Total Protein Albumin Globulin Albumin/Globulin Ratio Ur Collection Type Urine Color Urine Clarity Urine pH Ur Specific [place] Urine Protein Urine Glucose (UA) Urine Ketones Urine Occult Blood Urine Nitrate Urine Bilirubin Urine Urobilinogen Ur Leukocyte Esterase Urine RBC Urine WBC Ur Squamous Epith Cells Ur Renal Epithelial Cell Urine Crystals Urine Bacteria Urine Casts Urine Mucus Urine Trichomonas Urine Yeast Ur Culture Indicated? - Patient's Progress Pain Medication Addressed: POSITIVE: Yes School/Work Release Addressed: POSITIVE: Not Applicable Re-Examine Comment: Patient still experiencing severe abdominal pain. Patient given initial dose of fentanyl. Repeat dose of fentanyl ordered for pain control. Re-Examine Comment: Patient has mild hypokalemia. Will replace patient's hypokalemia. Status: POSITIVE: Unchanged MDM / ED Course: Patient presented to ED with concern for septic shock. Two IV lines were established 30 mL/kg bolus of normal saline was given. Blood cultures were drawn and after blood cultures were drawn IV antibiotics were ordered. Rocephin and flagyl were selected as I felt the patients source of infection was like intra-abdominal based off her physical examination and history. Labs were obtained. patient was noted to have hyperglycemia which is likely due to her acute infection and her noncompliance with her medication regimen. CT scan of patient's abdomen obtained and by my interpretation shows acute appendicitis. It was over-read by radiologist as acute appendicitis with 17 mm appendix with microperforation and surrounding stranding without abscess nor free air. I discussed all results with the patient and her . They expressed understanding. I subsequently discussed the case with Dr. Payton, general surgery, [facility] who will accept the patient for admission and will take the patient to the OR. Patient subsequently admitted to operative suite in stable but guarded condition. - Consult Consult (If Yes, Name of Consulting MD & Time Called): Yes (Dr. Payton) Consulting MD will see pt:: POSITIVE: In ED, [facility] [place] Admit Counseled: POSITIVE: Patient, Family, RE: Lab Results, RE: Radiology Results, RE: DX Patient Care Time - Estimated PCT Patient Care Time (In Minutes): 80 Vital Signs - Recent Vital Signs Vital Signs: Vital Signs (Last 8 hours) Temp Pulse Resp BP Pulse Ox 11/09/18 23:00 99.9 F H 114 H 22 159/88 94 11/09/18 21:25 99.0 F 125 H 16 138/119 95 - VS Reviewed Vital Signs Reviewed: Yes Critical Care Note - Critical Care Note Total Time (mins): 45 Critical Care: Shock, Circulatory Failure Risk, Multiple Organ Systems Threatened / At Risk History Source: Patient, Family Discussion with Family: Discussed results and need for surgical intervention with family Discussion with Screwdown Operator: Discussed with General surgery screed person Discharge Clinical Impression: Appendicitis, Abdominal pain, Dehydration, Nausea and vomiting, Diabetes melli tus, Hyperglycemia due to type 2 diabetes mellitus, Noncompliance with medication regimen Discharge Disposition: Admit to Inpatient Condition: Good Follow Up With: SAMEER DILLARD [Primary Care Provider] - Care Transferred To: Dr. Payton Date Decision to Admit to Inpatient: 11/09/18 Time Decision to Admit to Inpatient: 23:37
[2018-11-09] MEDS ORDERED: fentaNYL Inj 100 MCG/2 ML VIAL IVP ONE ×2 (21:42→23:04)
[2018-11-09] MEDS ORDERED: metroNIDAZOLE 500mg (Premix) 500 MG/100 ML BAG IV ONE (21:47)
[2018-11-09] MEDS ORDERED: cefTRIAXone Inj 2 GM in Sodium Chloride 0.9% 100 ML IV ONE (21:47)
[2018-11-09 21:53] LABS: BASOPHILS # (AUTO) 0.02 10*3/UL; BASOPHILS % (AUTO) 0.2 % (0-1); EOSINOPHILS # (AUTO) 0.01 10*3/UL; EOSINOPHILS % (AUTO) 0.1 % (0-8); Hematocrit [HCT] 46.5 % (37.0-47.0); Hemoglobin [HGB] 15.9 g/dL (12.0-16.0); LYMPHOCYTES # (AUTO) 2.12 10*3/uL; MEAN CORPUSCULAR HEMOGLOBIN 28.6 PG (27-31); MEAN CORPUSCULAR HGB CONC 34.2 g/dL (33-37); MEAN CORPUSCULAR VOLUME 83.8 FL (81-99); MEAN PLATELET VOLUME 10.3 FL (7.4-12.2); MONOCYTES # (AUTO) 0.36 10*3/UL (0.3-0.8); MONOCYTES % (AUTO) 4.3 % (5-15); NEUTROPHILS # (AUTO) 5.91 10*3/UL; NEUTROPHILS % (AUTO) 70.1 % (50-80); RED BLOOD COUNT 5.55 10^6/uL (4.20-5.40)
[2018-11-09 21:54] LABS: PLATELET MORPHOLOGY COMMENT NORMAL MORPHOLOGY (NORM); RBC MORPHOLOGY COMMENT NORMAL MORPHOLOGY (NORM); WBC MORPHOLOGY COMMENT NORMAL MORPHOLOGY (NORM)
[2018-11-09 21:58] LABS: VENOUS PH 7.31 (7.32-7.42)
[2018-11-09 22:02] LABS: BLOOD UREA NITROGEN 6 mg/dL (7-22); SERUM ALBUMIN 4.9 g/dL (3.5-4.8)
[2018-11-09 22:49] LABS: BILIRUBIN,URINE NEGATIVE (NEG); CLARITY,URINE CLEAR (CLEAR); COLOR,URINE YELLOW (Y); GLUCOSE, URINE (UA) 500 mg/dL (NEG); OCCULT BLOOD,URINE Trace-lysed (NEG); PROTEIN,URINE 100 mg/dl (NEG); UROBILINOGEN,URINE 0.2 EU/dL (0.2)
[2018-11-09 22:56] LABS: BACTERIA,URINE FEW; SQUAMOUS EPITHELIAL CELL,UR MODERATE; URINE SAMPLE TYPE VOIDED SPECIMEN
--- NOTE | 2018-11-09 23:19 | DI ---
EXAM: CT Abdomen and Pelvis With Intravenous Contrast CLINICAL HISTORY: Pain TECHNIQUE: Axial computed tomography images of the abdomen and pelvis with intravenous contrast. COMPARISON: CT abdomen and pelvis dated 02/17/2017 FINDINGS: Lung bases: Unremarkable. No mass. No consolidation. ABDOMEN: Liver: Unremarkable. Gallbladder and bile ducts: Unremarkable. Pancreas: Unremarkable. Spleen: Unremarkable. Adrenals: Unremarkable. Kidneys and ureters: Unremarkable. Stomach and bowel: Mild prominence of the small bowel within the right lower quadrant, likely reactive. PELVIS: Appendix: Dilated appendix measuring up to 17 mm with adjacent stranding. Findings are concerning for acute appendicitis with probable microperforation. No extra luminal gas or abscess. Bladder: Unremarkable. Reproductive: Unremarkable as visualized. ABDOMEN and PELVIS: Intraperitoneal space: Small amount of free fluid in the abdomen and pelvis. Bones/joints: No acute fracture. No dislocation. Soft tissues: Unremarkable. Vasculature: Vascular calcifications. No abdominal aortic aneurysm. Lymph nodes: Unremarkable. IMPRESSION: Dilated appendix measuring up to 17 mm with adjacent stranding. Findings are concerning for acute appendicitis with probable microperforation. No extra luminal gas or abscess. [employer] 11/09/18 23:24 Call Doctor Regarding Above results, called Dr. Gillette on 11/09 23:23 (-07:00)
[2018-11-09] MEDS ORDERED: Lactated Ringers 1,000 ML PRIMARY IV ONE (23:35)
--- NOTE | 2018-11-10 00:15 | PDOC ---
HPI - History of Present Illness Date of Service: 11/10/18 Time of Service: 00:11 Chief Complaint: Right lower quadrant abdominal pain History of Present Illness: This is a 48-year-old female who has type II diabetes is noncompliant with the medication. She comes in with a one-day history of abdominal pain. Progressively became worse. Patient initially was tachycardic. White count is unremarkable 8.[address] scan showed what appeared to be a dilated appendix with. Appendiceal stranding consistent with acute appendicitis. P adam's blood sugars were 420 on admission but came down to 350s with fluids. Patient is given Rocephin and Unasyn by the emergency room physician. Patient states that this and most pain that she's ever been and. She has never had problems with anesthetics before. She is spilling protein in urine but her BUN and creatinine are normal. Past Medical History Medical History: 1. Diabetes mellitus type II. 2. Ovarian cysts. 3. Hypertension. 4. Hypercholesteremia Surgical History: 1. Tubal ligation. 2. Bladder sling. 3. Cataracts bilaterally Pertinent Family History: Significant for diabetes and heart disease in her parents Past Social History: Does not smoke or drink. Has 4 children. . 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 Tobacco Use: Never Smoker In the Past 12 Months, Have Used or Abuse Any of the Following Substance: None Medication / Allergies Home Medications: Home Medications Medication Instructions Recorded Confirmed Type Cranberry Fruit Extract [Cranberry] 1 tab PO QD cap 05/07/15 03/03/18 History [place]-3 Fatty Acids/Fish Oil 2 ea PO QD cap 05/07/15 03/03/18 History [[place] 3 Fish Oil Softgel] Vit W-Ca,Fe,FA(<1 mg) 1 tab PO DAILY tab 05/07/15 03/03/18 History [ Formula] Blood Sugar Diagnostic [Glucose 1 ea IN QID #360 strip 07/07/16 03/03/18 History Test Strip] Losartan Potassium 1 tab PO DAILY #90 tab 07/07/16 03/03/18 History Metformin HCl 1.5 tab PO BID #270 tab 07/07/16 03/03/18 History Simvastatin 1 tab PO QPM #90 tab 07/07/16 03/03/18 History Dulaglutide [Trulicity] 0.5 ml SQ WEEKLY #4 ea 06/11/17 03/03/18 Rx amoxicillin 875 mg-potassium 1 tab PO BID #20 tab 03/03/18 03/03/18 Rx clavulanate 125 mg tablet codeine 10 mg-guaifenesin 100 mg/5 5 ml PO Q6H PRN #120 ml 03/03/18 03/03/18 Rx mL oral liquid prednisone 20 mg tablet 20 mg PO QDAY #7 tab 03/03/18 03/03/18 Rx Allergies/Adverse Reactions: Allergies Allergy/AdvReac Type Severity Reaction Status Date / Time morphine Allergy Severe HIVES Verified 03/03/18 10:18 Sulfa (Sulfonamide Allergy Intermediate HIVES Verified 03/03/18 10:18 Antibiotics) sitagliptin phosphate AdvReac Mild NAUSEA Verified 03/03/18 10:18 [From Jw] BANDAIDS Allergy Mild RASH Uncoded 03/03/18 10:18 Review of Systems - Review of Systems All Systems: Reviewed & No Additional Complaints Except as Stated - Constitutional Constitutional: REPORTS: General Health Fair - Integumentary Integumentary: REPORTS: Negative System Review - Eye Exam Eye Exam: REPORTS: Negative System Review - Ear/Nose Exam Ear/Nose Exam: REPORTS: Negative System Review - Mouth/Throat Mouth/Throat Exam: REPORTS: Negative System Review - Respiratory Respiratory: REPORTS: Negative System Review - Cardiovascular Cardiovascular: REPORTS: Negative System Review - Gastrointestinal Gastrointestinal / Abdominal: REPORTS: Nausea, Vomiting, Abdominal Pain - Genitourinary Genitourinary: REPORTS: Negative System Review, Pain, Burning - Gynecological Gynecological: REPORTS: Negative System Review - Musculoskeletal Musculoskeletal: REPORTS: Negative System Review - Neurological Neurologic: REPORTS: Negative System Review - Psychiatric Psychiatric: REPORTS: Negative System Review Exam - Vitals Vital Signs: Vital Signs Temperature 99.9 F Pulse Rate [Pulse Oximeter] 114 Respiratory Rate 22 Blood Pressure [Left Arm] 159/88 Pulse Ox 94 Oxygen Delivery Method Room Air Height 5 ft 5 in Weight 180 lb - General General Appearance: No Acute Distress, Cooperative - Eye Eye Exam: POSITIVE: PERRL, EOMI - ENT ENT Exam: POSITIVE: Normal Exam - Neck Neck Exam: Full ROM - Respiratory Respiratory Exam: POSITIVE: Clear to Auscultation - Bilaterally, Breathing Non Labored - Cardiovascular Cardiovascular Exam: POSITIVE: No Murmur, No Clicks - GI/Abdominal GI/Abdominal Exam: POSITIVE: Guarding (No rebound the), Positive for RUQ Pain, No Hepatomegaly, No Splenomegaly Results - Labs CBC and BMP: 11/09/18 21:45 11/09/18 21:45 Assessment and Plan - Patient Problems (1) Appendicitis Current Visit: Yes Status: Acute Code(s): K37 - Unspecified appendicitis - Assessment / Plan Additional Assessment/Plan Details: At this point given the patient acute appendicitis and CT scan that that she is diabetic I do think she needs go to surgery for an appendectomy. Risks benefits surgery explained to her. Potential complications were explained. She understands these. Patient was doing a surgeon the first available time.
[2018-11-10] MEDS ORDERED: ROCURONIUM 10 MG/1 ML - 5 ML VIAL IVP ONE (00:19)
[2018-11-10] MEDS ORDERED: fentaNYL Inj 100 MCG/2 ML VIAL ONE (00:19)
[2018-11-10] MEDS ORDERED: MIDAZOLAM HCL 2 MG/2 ML VIAL ONE (00:19)
[2018-11-10] MEDS ORDERED: KETAMINE 100 MG/1 ML - 5 ML ONE (00:19)
[2018-11-10] MEDS ORDERED: REMIFENTANIL 1 MG/1 ML IV ONE ×3 (00:19→02:00)
[2018-11-10] MEDS ORDERED: BUPIVACAINE 0.5% W/ EPI - 10 ML VIAL ONE (00:21)
[2018-11-10] MEDS ORDERED: PROPOFOL 10 MG/1 ML (200 MG/20 ML) VIAL IV ONE (00:24)
[2018-11-10] MEDS ORDERED: Lactated Ringers 1,000 ML PRIMARY IV ONE ×2 (02:07→18:23)
[2018-11-10] MEDS ORDERED: Acetaminophen 1000mg Inj 1,000 MG/100 ML VIAL IV ONE (02:08)
[2018-11-10] MEDS ORDERED: BUPivacaine Liposome/PF (Exparel) Inj 20ml vial INFIL ONE (02:25)
[2018-11-10] MEDS ORDERED: SODIUM CHLORIDE 0.9% ONE (02:25)
[2018-11-10] MEDS ORDERED: SUGAMMADEX SODIUM 200 MG/2 ML VIAL IV ONE (02:30)
[2018-11-10] MEDS ORDERED: ONDANSETRON 4 MG/2 ML VIAL ONE (02:33)
--- NOTE | 2018-11-10 02:51 | CRNA.PROGR ---
Anesthesia Time - Procedure/Recovery Time Start Date: 11/10/18 End Date: 11/10/18 Anesthesia : Time In: 00:36 Anesthesia : Time Out: 02:47 Anesthesia : Total Time: 131 - Total Anesthesia Time Total Anesthesia Time (minutes): 131 - Other Weight: 81.647 kg Height: 5 ft 5 in Body Mass Index (BMI): 29.9 Physical Status: P3 (noncompliant dm, ruptured appy, abscess,) Anesthesia Type: General Anesthesia : ET
[2018-11-10] MEDS ORDERED: Lactated Ringers 1,000 ML PRIMARY IV SCH (02:52)
[2018-11-10] MEDS ORDERED: LIDOCAINE W/ SODIUM BICARB 0.5 ML SYR SUBD PRN (02:52)
--- NOTE | 2018-11-10 02:52 | CRNA.PROGR ---
Anesthesia Recovery Phase I - Post Anesthesia Evaluation Patient's Condition on Arrival in Phase I: Stable Patient's Condition on Arrival in Phase II: Stable Pain Level: 3 (Finger stick 395 on arrival PACU)
--- NOTE | 2018-11-10 02:52 | CRNA.PROGR ---
Post Anesthesia Phase II - Post Anesthesia Phase II Patient Stable and Discharged To: Med/Surg Temperature: 98.2 F Pulse Rate: 116 Respiratory Rate: 22 Blood Pressure: 165/78 Pulse Ox: 96 Total Dalia Score at Discharge: 9 Post Anesthesia Discharge Criteria Met: Yes
[2018-11-10] MEDS ORDERED: NALOXONE 0.4 MG/1 ML VIAL IVP PRN ×4 (02:54→03:21)
[2018-11-10] MEDS ORDERED: Ondansetron ODT Tab 4 MG TAB PO PRN ×3 (02:54→18:56)
[2018-11-10] MEDS ORDERED: LIDOCAINE HCL 2 % 10 ML JELLY URO-JECT TOPICAL PRN ×3 (02:54→18:55)
[2018-11-10] MEDS ORDERED: cefTRIAXone Inj 2 GM in Sodium Chloride 0.9% 100 ML IV SCH (03:00)
[2018-11-10] MEDS ORDERED: metroNIDAZOLE 500mg (Premix) 500 MG/100 ML BAG IV SCH (03:00)
[2018-11-10] MEDS ORDERED: Keys-Hydromorphone PCA PRN ×3 (03:02→03:21)
--- NOTE | 2018-11-10 03:13 | GEN.OPNOTE ---
Operative Note Surgery Date: 11/10/18 Preoperative Diagnosis: Acute appendicitis Postoperative Diagnosis: Ruptured appendicitis with peritonitis Procedure: Appendectomy Surgeon: Theo Payton MD Anesthesia Provider: Brad Virgen CRNA Anesthesia Type: General Estimated Blood Loss (mL): 50 Fluids: 1800 mL of lactated Ringer's Pathology: Appendix sent. Anaerobic and aerobic cultures obtained Indications: Patient has acute appendicitis based on CT scan and physical exam. Showed inflammation around the appendix been no appendiceal abscess. Findings: Patient had simba peritonitis with pus in the abdominal cavity. Patient had an abscess cavity around the appendix patient had a necrotic appendix that had ruptured Complications: None Operative Summary: Patient is brought in operative room. Placed supine position. Given general tracheal anesthesia. Prepped draped sterile fashion. Timeout performed per protocols. I made a skin incision over the point of maximum tenderness. Hemostased electrocautery dissection to subcutaneous tissue electrocautery. I then split the external oblique along its natural fibers. I then a muscle- splitting incision. Then opened up the posterior sheath with scalpel Metzenbaum scissors transversely. Patient had copious amounts of purulent fluid in the abdominal cavity. I did obtain aerobic and anaerobic cultures. Myron retractor was then placed. Patient had an old abscess cavity around the appendix. There was not much fluid in this but some old fluid. I found the tip of the appendix inserted dissected this down to the mesial appendix. Clamp divided the appendix. Patient's appendix was scarred down and the cecum was very rigid from the inflammatory condition. This made it difficult get adequate exposure. I had to extend my incision laterally through the lateral obliques. This Exposure. Would continue to clamp divided the appendix down to the base. The base of the appendix was necrotic. Midportion of the appendix had already perforated. I divided the appendix and handed off as surgical specimen. This point the base of the appendix was short and could not hold the traditional ligation therefore using 3-0 Vicryl pop-off sutures I did simple interrupted sutures to close the appendix. I then irrigated until there is no more purulent fluid in the abdominal cavity both but the liver abdominal cavity and in the pelvis. No other abnormal pathology could be identified. Because of the abscess cavity, I did put a 7 Bhargav-Moraes drain and brought out through stab incision. Closed the posterior sheath with 0 PDS. Anterior fascial sheath was closed with 0 PDS continuous running sutures. I irrigated the subcutaneous tissue with forced irrigation. 18 angiocatheter. I infiltrated 20 mL of Exoprel diluted to 100 mL into the cassette subcutaneous tissue for postoperative pain control. Skin reapproximated using skin jose antonio. Counts were correct. Patient transferred recovery room in stable condition. Patient Problems - Patient Problem List (1) Appendicitis Current Visit: Yes Status: Acute Code(s): K37 - Unspecified appendicitis Category: Medical Procedure Codes - Surgical Procedures Primary Surgical Procedure: 61395 : Appendectomy
[2018-11-10] MEDS ORDERED: HYDROmorphone/PF/PCA 9 MG/30 ML IV SCH ×4 (03:15→19:00)
[2018-11-10] MEDS ORDERED: Glucagon Inj Vial 1 MG/ML VIAL IM PRN ×2 (03:21→18:54)
[2018-11-10] MEDS ORDERED: DEXTROSE 50%-WATER SYRINGE 50 ML SYRINGE IVP PRN ×2 (03:21→18:53)
[2018-11-10] MEDS ORDERED: DEXTROSE 31 GM GEL PO PRN ×2 (03:21→18:54)
[2018-11-10] MEDS ORDERED: Insulin Sliding Scale Protocol SUBCUT PRN (03:21)
[2018-11-10] MEDS ORDERED: HYDROmorphone 2 MG/1 ML IVP ONE (03:53)
[2018-11-10] MEDS: Insulin Lispro Flexpen 300 UNIT/3 ML INSULN.PEN SUBCUT SCH ×5 (04:16→20:50)
[2018-11-10] MEDS ORDERED: Sodium Chloride 0.9% 1,000 ML PRIMARY IV SCH (04:30)
[2018-11-10] MEDS ORDERED: Keys-Hydromorphone PCA ONE (05:33)
[2018-11-10 05:34] LABS: BASOPHILS # (AUTO) 0.01 10*3/UL; BASOPHILS % (AUTO) 0.1 % (0-1); EOSINOPHILS # (AUTO) 0 10*3/UL; EOSINOPHILS % (AUTO) 0 % (0-8); Hematocrit [HCT] 39.6 % (37.0-47.0); Hemoglobin [HGB] 13.1 g/dL (12.0-16.0); LYMPHOCYTES # (AUTO) 1.02 10*3/uL; MEAN CORPUSCULAR HEMOGLOBIN 28.1 PG (27-31); MEAN CORPUSCULAR HGB CONC 33.1 g/dL (33-37); MEAN CORPUSCULAR VOLUME 84.8 FL (81-99); MEAN PLATELET VOLUME 10.7 FL (7.4-12.2); MONOCYTES # (AUTO) 0.54 10*3/UL (0.3-0.8); MONOCYTES % (AUTO) 7.6 % (5-15); NEUTROPHILS # (AUTO) 5.49 10*3/UL; NEUTROPHILS % (AUTO) 77.6 % (50-80); RED BLOOD COUNT 4.67 10^6/uL (4.20-5.40)
[2018-11-10 05:45] LABS: PLATELET MORPHOLOGY COMMENT NORMAL MORPHOLOGY (NORM); RBC MORPHOLOGY COMMENT NORMAL MORPHOLOGY (NORM); WBC MORPHOLOGY COMMENT NORMAL MORPHOLOGY (NORM)
[2018-11-10 05:52] LABS: BLOOD UREA NITROGEN 6 mg/dL (7-22)
--- NOTE | 2018-11-10 08:08 | PDOC(PROG) ---
Subjective Post Op Day: date of surgery Pain Management: Peripheral REGULATORY SERVICES CONSULTANT Velarde Catheter: No Flatus: No Diet: Clear Liquids Ambulating: Yes Date of Service: 11/10/18 Time of Service: 08:07 Interval History: Patient states that she's feeling better. Dissection cannot the bathroom. Has not had a bowel movement though. Objective : Data - Labs CBC and BMP: 11/10/18 04:10 11/10/18 04:10 - Vital Signs Vital Signs and I&O: Vital Signs - Last Taken Temperature 97.1 F 11/10/18 05:20 Pulse Rate 88 11/10/18 07:00 Respiratory Rate 18 11/10/18 07:00 Blood Pressure 129/85 11/10/18 06:02 Pulse Ox 94 11/10/18 07:00 Intake and Output (24hr x 4 totals) 11/08/18 11/09/18 11/10/18 11/11/18 05:59 05:59 05:59 05:59 Intake Total 4197 / 4197 Output Total 650 / 650 550 / 550 Balance 3547 / 3547 -550 / -550 Objective : Exam - General General Appearance: No Acute Distress - Respiratory Respiratory Exam: Clear to Auscultation - Bilaterally, Breathing Non Labored - GI/Abdominal GI/Abdominal Exam: Soft, Distended Assessment and Plan - Patient Problems (1) Appendicitis Current Visit: Yes Status: Acute Code(s): K37 - Unspecified appendicitis - Assessment / Plan Additional Assessment/Plan Details: Patient is is surgeries a refill little bit better. She's on a REGULATORY SERVICES CONSULTANT pump. This is not nauseated was started clear liquid diet. Her blood sugars are still high be managed by Dr. Gaspar. We'll decrease her IV fluids to to keep open for the REGULATORY SERVICES CONSULTANT pump.
[2018-11-10] MEDS: metroNIDAZOLE 500mg (Premix) 500 MG/100 ML BAG IV SCH ×2 (10:49→19:20)
[2018-11-10 11:47] LABS: HEMOGLOBIN A1C 13.69 % (4.2-6.0)
--- NOTE | 2018-11-10 12:47 | CONSULT ---
Consult Note - Consult Consult Date: 11/10/18 Reason for Consult: PostOp Consulation : General Surgery Requesting Physician: Dr. Payton Primary Care Provider: Luba Cowan MD - History of Present Illness History of Present Illness: This is a 48 years old female with medical history significant for history of diabetes, hypertension and hypercholesterolemia, she is on no medication currently because she cannot afford it. She came into the hospital because of abdominal pain a CT of the abdomen showed dilated appendix. This was consistent with appendicitis patient had surgery done. Her blood sugar when she came in was in the 400 she was given Rocephin and flagyl and was [facility]. Dr. Payton took her to surgery. She was put on sliding scale postsurgery. The hospitalist service were consulted for management of medical issues including diabetes. She said she had diabetes for about 10 years, she was on metformin 3 times a day until beginning of this year. However she said her blood sugars not controlled. She tried to Trulicity before and that did not agree with her. Apparently she had Januvia also and that did not agree with her. There is no history of diabetic complications. Past Medical History Medical History: 1. Diabetes mellitus type II. 2. Ovarian cysts. 3. Hypertension. 4. Hypercholesteremia Surgical History: 1. Tubal ligation. 2. Bladder sling. 3. Cataracts bilater ally Pertinent Family History: Significant for diabetes and heart disease in her parents Past Social History: Does not smoke or drink. Has 4 children. . 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 Tobacco Use: Never Smoker In the Past 12 Months, Have Used or Abuse Any of the Following Substance: None Alcohol Use: None Review of Systems - Review of Systems All Systems: Reviewed & No Additional Complaints Except as Stated Medication / Allergies Home Medications: Home Medications Medication Instructions Recorded Confirmed Type Cranberry Fruit Extract [Cranberry] 1 tab PO QD cap 05/07/15 03/03/18 History [place]-3 Fatty Acids/Fish Oil 2 ea PO QD cap 05/07/15 03/03/18 History [[place] 3 Fish Oil Softgel] Vit W-Ca,Fe,FA(<1 mg) 1 tab PO DAILY tab 05/07/15 03/03/18 History [ Formula] Blood Sugar Diagnostic [Glucose 1 ea IN QID #360 strip 07/07/16 03/03/18 History Test Strip] Losartan Potassium 1 tab PO DAILY #90 tab 07/07/16 03/03/18 History Metformin HCl 1.5 tab PO BID #270 tab 07/07/16 03/03/18 History Simvastatin 1 tab PO QPM #90 tab 07/07/16 03/03/18 History Dulaglutide [Trulicity] 0.5 ml SQ WEEKLY #4 ea 06/11/17 03/03/18 Rx amoxicillin 875 mg-potassium 1 tab PO BID #20 tab 03/03/18 03/03/18 Rx clavulanate 125 mg tablet codeine 10 mg-guaifenesin 100 mg/5 5 ml PO Q6H PRN #120 ml 03/03/18 03/03/18 Rx mL oral liquid prednisone 20 mg tablet 20 mg PO QDAY #7 tab 03/03/18 03/03/18 Rx Allergies/Adverse Reactions: Allergies Allergy/AdvReac Type Severity Reaction Status Date / Time morphine Allergy Severe HIVES Verified 11/10/18 06:57 Sulfa (Sulfonamide Allergy Intermediate HIVES Verified 11/10/18 06:57 Antibiotics) sitagliptin phosphate AdvReac Mild NAUSEA Verified 11/10/18 06:57 [From Jw] BANDAIDS Allergy Mild RASH Uncoded 03/03/18 10:18 Exam - Vitals Vital Signs: Vital Signs Temperature 97.2 F Temperature Source Temporal Artery Scan Pulse Rate [Pulse Oximeter] 96 Pulse Rate 104 Respiratory Rate 20 Blood Pressure [Left Arm] 131/81 Blood Pressure 159/93 Pulse Ox 96 Oxygen Flow Rate 2 Oxygen Delivery Method Nasal Cannula Height 5 ft 5 in Weight 180 lb - General General Appearance: No Acute Distress, Cooperative - Head Head Exam: Normal Inspection - Eye Eye Exam: POSITIVE: Normal Appearance - ENT ENT Exam: POSITIVE: Normal Exam - Neck Neck Exam: Normal Inspection - Respiratory Respiratory Exam: POSITIVE: Clear to Auscultation - Bilaterally - Cardiovascular Cardiovascular Exam: POSITIVE: RRR - Rectal Rectal Exam: POSITIVE: Deferred - External Exam: POSITIVE: Deferred - Extremities Extremities Exam: POSITIVE: Normal Inspection - Neurological Neurological Exam: POSITIVE: Alert, CN II-XII Intact, No Facial Droop, Speech Intact / Clear - Psychiatric Psychiatric Exam: POSITIVE: Normal Affect Results - Labs CBC and BMP: 11/10/18 04:10 11/10/18 04:10 Assessment and Plan - Patient Problems (1) Diabetes mellitus Current Visit: Yes Status: Acute Comment: Blood sugar is uncontrolled. Will order A1c. Continue sliding scale. I think will add long-acting Lantus probably tonight. Code(s): E11.9 - Type 2 diabetes mellitus without complications Qualifiers: (2) Appendicitis Current Visit: Yes Status: Acute Comment: Management. Dr. Payton she is on antibiotics. Code(s): K37 - Unspecified appendicitis
[2018-11-10] MEDS ORDERED: Ondansetron ODT Tab 4 MG TAB PO ONE (18:10)
[2018-11-10] MEDS: oxyCODONE IR Tab 5 MG TAB PO PRN (20:40)
[2018-11-10] MEDS ORDERED: Insulin Glargine SoloStar Inj 100 UNIT/ML INSULN.PEN SUBCUT SCH (21:00)
[2018-11-10] MEDS ORDERED: HYDROmorphone 2 MG/1 ML IVP PRN (21:34)
[2018-11-11] MEDS: oxyCODONE IR Tab 5 MG TAB PO PRN ×3 (00:11→08:15)
[2018-11-11] MEDS: metroNIDAZOLE 500mg (Premix) 500 MG/100 ML BAG IV SCH ×3 (02:07→18:48)
[2018-11-11] MEDS: cefTRIAXone Inj 2 GM in Sodium Chloride 0.9% 100 ML IV SCH (03:20)
[2018-11-11 05:43] LABS: BASOPHILS # (AUTO) 0.01 10*3/UL; BASOPHILS % (AUTO) 0.1 % (0-1); EOSINOPHILS # (AUTO) 0.08 10*3/UL; EOSINOPHILS % (AUTO) 0.7 % (0-8); Hematocrit [HCT] 36.6 % (37.0-47.0); Hemoglobin [HGB] 11.6 g/dL (12.0-16.0); LYMPHOCYTES # (AUTO) 1.88 10*3/uL; MEAN CORPUSCULAR HEMOGLOBIN 27.3 PG (27-31); MEAN CORPUSCULAR HGB CONC 31.7 g/dL (33-37); MEAN CORPUSCULAR VOLUME 86.1 FL (81-99); MEAN PLATELET VOLUME 10.4 FL (7.4-12.2); MONOCYTES # (AUTO) 0.77 10*3/UL (0.3-0.8); MONOCYTES % (AUTO) 6.7 % (5-15); NEUTROPHILS # (AUTO) 8.75 10*3/UL; NEUTROPHILS % (AUTO) 75.9 % (50-80); RED BLOOD COUNT 4.25 10^6/uL (4.20-5.40)
[2018-11-11 05:56] LABS: PLATELET MORPHOLOGY COMMENT NORMAL MORPHOLOGY (NORM); RBC MORPHOLOGY COMMENT NORMAL MORPHOLOGY (NORM); WBC MORPHOLOGY COMMENT NORMAL MORPHOLOGY (NORM)
[2018-11-11 06:00] LABS: BLOOD UREA NITROGEN 7 mg/dL (7-22)
[2018-11-11] MEDS: Insulin Lispro Flexpen 300 UNIT/3 ML INSULN.PEN SUBCUT SCH ×3 (08:16→17:11)
[2018-11-11] MEDS ORDERED: HYDROcodone-APAP 7.5 MG-325 MG TABLET PO PRN (13:18)
--- NOTE | 2018-11-11 13:41 | PDOC(PROG) ---
Subjective Post Op Day: postop day 1 Pain Management: PO Flatus: No Diet: Clear Liquids Ambulating: Yes Date of Service: 11/11/18 Time of Service: 13:39 Interval History: Patient is having some breakthrough pains point she states that she fell asleep and now is behind on her pain. She is not passing gas there is no nausea. Objective : Data - Labs CBC and BMP: 11/11/18 05:10 11/11/18 05:10 - Vital Signs Vital Signs and I&O: Vital Signs - Last Taken Temperature 97.2 F 11/11/18 11:01 Pulse Rate 107 H 11/11/18 11:01 Respiratory Rate 17 11/11/18 11:01 Blood Pressure 128/75 11/11/18 11:01 Pulse Ox 91 11/11/18 11:01 Intake and Output (24hr x 4 totals) 11/09/18 11/10/18 11/11/18 11/12/18 05:59 05:59 05:59 05:59 Intake Total 4197 / 4197 3074 / 3074 Output Total 650 / 650 2410 / 2410 Balance 3547 / 3547 664 / 664 -15 / -15 Objective : Exam - General General Appearance: No Acute Distress - Eye Eye Exam: PERRL, EOMI - Respiratory Respiratory Exam: Clear to Auscultation - Bilaterally - GI/Abdominal GI/Abdominal Exam: Non Distended Assessment and Plan - Patient Problems (1) Appendicitis Current Visit: Yes Status: Acute Code(s): K37 - Unspecified appendicitis - Assessment / Plan Additional Assessment/Plan Details: Continue current treatment.
[2018-11-11] MEDS: HYDROcodone-APAP 7.5 MG-325 MG TABLET PO PRN ×3 (13:50→19:59)
--- NOTE | 2018-11-11 14:04 | PDOC(PROG) ---
Date of Service: 11/11/18 Time of Service: 14:00 Interval History: Subjective Patient was complaining from pain in the site of the surgery but otherwise denying other symptoms. She still on clear liquid. Objective : Data - Labs CBC and BMP: 11/11/18 05:10 11/11/18 05:10 Objective : Exam - General General Appearance: No Acute Distress, Cooperative - Head Head Exam: Normal Inspection - Eye Eye Exam: Normal Appearance - ENT ENT Exam: Normal Exam - Neck Neck Exam: Normal Inspection - Respiratory Respiratory Exam: Clear to Auscultation - Bilaterally - Cardiovascular Cardiovascular Exam: RRR - Rectal Rectal Exam: Deferred - External Exam: Deferred - Extremities Extremities Exam: Normal Inspection Assessment and Plan - Patient Problems (1) Diabetes mellitus Current Visit: Yes Status: Acute Comment: Blood sugar is coming down but still elevated though. Her A1c was more than 13. We did put her on Lantus I think I'll increase the dosage of the Lantus tonight. Continue the sliding scale. Code(s): E11.9 - Type 2 diabetes mellitus without complications Qualifiers: (2) Appendicitis Current Visit: Yes Status: Acute Comment: Management per Dr. Payton Code(s): K37 - Unspecified appendicitis
[2018-11-11] MEDS ORDERED: Insulin Glargine SoloStar Inj 100 UNIT/ML INSULN.PEN SUBCUT SCH (21:00)
[2018-11-12] MEDS: HYDROcodone-APAP 7.5 MG-325 MG TABLET PO PRN ×6 (01:16→21:23)
[2018-11-12] MEDS: metroNIDAZOLE 500mg (Premix) 500 MG/100 ML BAG IV SCH ×3 (02:47→19:52)
[2018-11-12] MEDS: cefTRIAXone Inj 2 GM in Sodium Chloride 0.9% 100 ML IV SCH (02:48)
[2018-11-12] MEDS: Insulin Lispro Flexpen 300 UNIT/3 ML INSULN.PEN SUBCUT SCH ×3 (07:41→17:33)
--- NOTE | 2018-11-12 11:04 | PDOC(PROG) ---
Subjective Post Op Day: 2 Date of Service: 11/12/18 Time of Service: 10:53 Interval History: Patient states she is feeling fine denies any fever chills Objective : Data - Labs CBC and BMP: 11/11/18 05:10 11/11/18 05:10 - Vital Signs Vital Signs and I&O: Vital Signs - Last Taken Temperature 97.3 F 11/12/18 07:22 Pulse Rate 105 H 11/12/18 07:22 Respiratory Rate 16 11/12/18 07:22 Blood Pressure 144/78 11/12/18 07:22 Pulse Ox 91 11/12/18 07:22 Intake and Output (24hr x 4 totals) 11/10/18 11/11/18 11/12/18 11/13/18 05:59 05:59 05:59 05:59 Intake Total 4197 / 4197 3074 / 3074 1540 / 1540 Output Total 650 / 650 2410 / 2410 745 / 745 400 / 400 Balance 3547 / 3547 664 / 664 795 / 795 -400 / -400 Objective : Exam - General General Appearance: No Acute Distress, Cooperative - Respiratory Respiratory Exam: Clear to Auscultation - Bilaterally - Cardiovascular Cardiovascular Exam: RRR - GI/Abdominal GI/Abdominal Exam: Non Tender, Non Distended, Soft Assessment and Plan - Patient Problems (1) Appendicitis Current Visit: Yes Status: Acute Code(s): K37 - Unspecified appendicitis - Assessment / Plan Additional Assessment/Plan Details: Patient is doing very well. The JPs dispensers fluid out now. Will probably Cora in the a.m. Will keep on IV antibiotics today and suture Ohls in the a.m. if her white count is normal. Also check she be discharged home tomorrow
[2018-11-12] MEDS ORDERED: Insulin Glargine SoloStar Inj 100 UNIT/ML INSULN.PEN SUBCUT SCH (21:00)
[2018-11-13] MEDS: HYDROcodone-APAP 7.5 MG-325 MG TABLET PO PRN ×6 (01:13→21:55)
[2018-11-13] MEDS: cefTRIAXone Inj 2 GM in Sodium Chloride 0.9% 100 ML IV SCH (02:40)
[2018-11-13] MEDS: metroNIDAZOLE 500mg (Premix) 500 MG/100 ML BAG IV SCH ×3 (02:40→19:07)
[2018-11-13 05:25] LABS: BASOPHILS # (AUTO) 0.04 10*3/UL; BASOPHILS % (AUTO) 0.3 % (0-1); EOSINOPHILS # (AUTO) 0.22 10*3/UL; EOSINOPHILS % (AUTO) 1.6 % (0-8); Hematocrit [HCT] 36.7 % (37.0-47.0); Hemoglobin [HGB] 11.9 g/dL (12.0-16.0); LYMPHOCYTES # (AUTO) 2.15 10*3/uL; MEAN CORPUSCULAR HEMOGLOBIN 27.7 PG (27-31); MEAN CORPUSCULAR HGB CONC 32.4 g/dL (33-37); MEAN CORPUSCULAR VOLUME 85.5 FL (81-99); MEAN PLATELET VOLUME 10.2 FL (7.4-12.2); MONOCYTES # (AUTO) 0.84 10*3/UL (0.3-0.8); MONOCYTES % (AUTO) 6.1 % (5-15); NEUTROPHILS # (AUTO) 10.51 10*3/UL; NEUTROPHILS % (AUTO) 75.9 % (50-80); RED BLOOD COUNT 4.29 10^6/uL (4.20-5.40)
[2018-11-13 05:31] LABS: PLATELET MORPHOLOGY COMMENT NORMAL MORPHOLOGY (NORM); RBC MORPHOLOGY COMMENT NORMAL MORPHOLOGY (NORM); WBC MORPHOLOGY COMMENT NORMAL MORPHOLOGY (NORM)
[2018-11-13 05:42] LABS: BLOOD UREA NITROGEN 6 mg/dL (7-22)
[2018-11-13] MEDS: Insulin Lispro Flexpen 300 UNIT/3 ML INSULN.PEN SUBCUT SCH ×3 (06:55→16:47)
[2018-11-13] MEDS ORDERED: MAGNESIUM 400 MG/5 ML - 30 ML (MILK OF MAGNESIA) PO ONE (10:42)
--- NOTE | 2018-11-13 10:49 | PDOC(PROG) ---
Subjective Post Op Day: postop day 3 Pain Management: PO Velarde Catheter: No Flatus: No Diet: Regular Date of Service: 11/13/18 Time of Service: 10:43 Interval History: Patient states that she's having some crampy abdominal pain. Feels like an upset stomach no nausea vomiting still hasn't passing flatus Objective : Data - Labs CBC and BMP: 11/13/18 04:25 11/13/18 04:25 - Vital Signs Vital Signs and I&O: Vital Signs - Last Taken Temperature 97.5 F 11/13/18 08:27 Pulse Rate 104 H 11/13/18 08:27 Respiratory Rate 20 11/13/18 08:27 Blood Pressure 144/88 11/13/18 08:27 Pulse Ox 90 11/13/18 08:27 Intake and Output (24hr x 4 totals) 11/11/18 11/12/18 11/13/18 11/14/18 05:59 05:59 05:59 05:59 Intake Total 3074 / 3074 1540 / 1540 1020 / 1020 360 / 360 Output Total 2410 / 2410 745 / 745 1640 / 1640 200 / 200 Balance 664 / 664 795 / 795 -620 / -620 160 / 160 Objective : Exam - General General Appearance: Cooperative - Neck Neck Exam: Normal Inspection - Respiratory Respiratory Exam: Clear to Auscultation - Bilaterally, Breathing Non Labored - GI/Abdominal GI/Abdominal Exam: Normal Bowel Sounds, Non Distended, Soft Assessment and Plan - Patient Problems (1) Appendicitis Current Visit: Yes Status: Acute Code(s): K37 - Unspecified appendicitis - Assessment / Plan Additional Assessment/Plan Details: Patient's white count is going up despite been afebrile questions whether she might have an underlying fungal infection on top of the be faecalis has grown out. She is on appropriate antibiotics but will add Diflucan prophylactically. Therefore milligrams today and sutured down to 200 mg as need be. Try to get her blood sugars in better control her JAQUELINE was moved removed today. It was only putting out scant amount of serous sinus fluid
[2018-11-13] MEDS ORDERED: Fluconazole 400mg (Premix) 400 MG/200 ML BAG IV SCH (11:00)
[2018-11-13] MEDS: Insulin Glargine SoloStar Inj 100 UNIT/ML INSULN.PEN SUBCUT SCH (20:52)
[2018-11-14] MEDS: metroNIDAZOLE 500mg (Premix) 500 MG/100 ML BAG IV SCH ×3 (02:14→19:18)
[2018-11-14] MEDS: HYDROcodone-APAP 7.5 MG-325 MG TABLET PO PRN ×6 (02:15→23:55)
[2018-11-14] MEDS: cefTRIAXone Inj 2 GM in Sodium Chloride 0.9% 100 ML IV SCH (03:20)
[2018-11-14 05:35] LABS: BASOPHILS # (AUTO) 0.06 10*3/UL; BASOPHILS % (AUTO) 0.5 % (0-1); EOSINOPHILS % (AUTO) 1.6 % (0-8); Hematocrit [HCT] 36.8 % (37.0-47.0); Hemoglobin [HGB] 12.2 g/dL (12.0-16.0); LYMPHOCYTES # (AUTO) 2.72 10*3/uL; MEAN CORPUSCULAR HEMOGLOBIN 27.8 PG (27-31); MEAN CORPUSCULAR HGB CONC 33.2 g/dL (33-37); MEAN CORPUSCULAR VOLUME 83.8 FL (81-99); MEAN PLATELET VOLUME 9.5 FL (7.4-12.2); MONOCYTES # (AUTO) 0.94 10*3/UL (0.3-0.8); MONOCYTES % (AUTO) 7.3 % (5-15); NEUTROPHILS # (AUTO) 8.74 10*3/UL; NEUTROPHILS % (AUTO) 68.2 % (50-80); RED BLOOD COUNT 4.39 10^6/uL (4.20-5.40)
[2018-11-14 05:41] LABS: PLATELET MORPHOLOGY COMMENT NORMAL MORPHOLOGY (NORM); RBC MORPHOLOGY COMMENT NORMAL MORPHOLOGY (NORM); WBC MORPHOLOGY COMMENT NORMAL MORPHOLOGY (NORM)
[2018-11-14 05:47] LABS: BLOOD UREA NITROGEN 5 mg/dL (7-22); BUN/CREATININE RATIO 16.66 (6-20)
[2018-11-14] MEDS: Insulin Lispro Flexpen 300 UNIT/3 ML INSULN.PEN SUBCUT SCH ×3 (07:47→17:07)
--- NOTE | 2018-11-14 10:04 | PDOC(PROG) ---
Subjective Post Op Day: postop day 4 Pain Management: PO Velarde Catheter: No Flatus: Yes Diet: diabetic Ambulating: Yes Date of Service: 11/14/18 Time of Service: 10:02 Interval History: Patient is having what she describes as gas a gram pain. Otherwise she's feeling better. Started passing flatus. She is afebrile. Objective : Data - Labs CBC and BMP: 11/14/18 05:15 11/14/18 05:15 - Vital Signs Vital Signs and I&O: Vital Signs - Last Taken Temperature 98.6 F 11/14/18 07:51 Pulse Rate 104 H 11/14/18 07:51 Respiratory Rate 16 11/14/18 07:51 Blood Pressure 140/85 11/14/18 07:51 Pulse Ox 90 11/14/18 07:51 Intake and Output (24hr x 4 totals) 11/12/18 11/13/18 11/14/18 11/15/18 05:59 05:59 05:59 05:59 Intake Total 1540 / 1540 1020 / 1020 2680 / 2680 Output Total 745 / 745 1640 / 1640 1575 / 1575 Balance 795 / 795 -620 / -620 1105 / 1105 Objective : Exam - General General Appearance: No Acute Distress - Eye Eye Exam: PERRL - GI/Abdominal GI/Abdominal Exam: Normal Bowel Sounds, Non Tender, Non Distended Assessment and Plan - Patient Problems (1) Appendicitis Current Visit: Yes Status: Acute Code(s): K37 - Unspecified appendicitis - Assessment / Plan Additional Assessment/Plan Details: Patient's white count still slightly elevated at 12,000 is not left shift. I do want her on IV antibiotics another day. Switch Diflucan to 200 mg IV. Given the questions with a perforated appendix and the abscess that she has some fungal component to it. Even though cultures only growing bacteria had a ruptured appendix is a was a multi bug infection.
[2018-11-14] MEDS: Fluconazole 200mg (Premix) 200 MG/100 ML BAG IV SCH (12:34)
[2018-11-14] MEDS: Insulin Glargine SoloStar Inj 100 UNIT/ML INSULN.PEN SUBCUT SCH (20:26)
[2018-11-15] MEDS: cefTRIAXone Inj 2 GM in Sodium Chloride 0.9% 100 ML IV SCH (02:46)
[2018-11-15] MEDS: metroNIDAZOLE 500mg (Premix) 500 MG/100 ML BAG IV SCH (02:46)
[2018-11-15] MEDS: HYDROcodone-APAP 7.5 MG-325 MG TABLET PO PRN ×2 (04:37→09:15)
[2018-11-15 07:31] LABS: Hemoglobin [HGB] 11.4 g/dL (12.0-16.0); MEAN CORPUSCULAR HEMOGLOBIN 28.1 PG (27-31); MEAN CORPUSCULAR HGB CONC 33.5 g/dL (33-37); MEAN PLATELET VOLUME 8.9 FL (7.4-12.2); RED BLOOD COUNT 4.05 10^6/uL (4.20-5.40)
[2018-11-15] MEDS: Insulin Lispro Flexpen 300 UNIT/3 ML INSULN.PEN SUBCUT SCH ×2 (07:42→11:29)
[2018-11-15 07:55] LABS: PLATELET MORPHOLOGY COMMENT NORMAL MORPHOLOGY (NORM); RBC MORPHOLOGY COMMENT NORMAL MORPHOLOGY (NORM); WBC MORPHOLOGY COMMENT SEE COMMENTS (NORM)
[2018-11-15 08:01] LABS: BLOOD UREA NITROGEN 3 mg/dL (7-22)
[2018-11-15] MEDS ORDERED: Amoxicill/Clav 875/125mg Tab 1 TAB TAB PO SCH (09:00)
[2018-11-15] MEDS: POTASSIUM CHLORIDE 20 MEQ TAB PO ONE ×2 (09:16→11:33)
[2018-11-15] MEDS ORDERED: MAGNESIUM 400 MG/5 ML - 30 ML (MILK OF MAGNESIA) PO PRN (09:21)
[2018-11-15] MEDS: Fluconazole 200mg (Premix) 200 MG/100 ML BAG IV SCH (10:17)
--- NOTE | 2018-11-15 10:21 | DCSUMMARY ---
Discharge Summary Admit Date: 11/10/18 Discharge Date: 11/15/18 Admitting Diagnosis: acute appendicitis Discharge Diagnosis: a ruptured appendix with generalized peritonitis Primary Surgery and Date: 11/10/2018. Appendectomy Hospital Course: Patient issues in the emergency department on 11/09/2018. She was diagnosed with acute appendicitis confirmed by CT scan. She is taking surgery in the early hours of 12/11/2017. Postoperative she actually did very well. I did place a drain into look like patient had a appendiceal abscess that had ruptured. On the second postoperative day she is on have a serous fluid out of the JAQUELINE therefore the JAQUELINE was removed. She had a persistent white count postoperatively therefore Diflucan was added for presumptive fungal infection. Patient remained on Rocephin and Flagyl. On the day of discharge her white count had returned to normal. She remained afebrile. She is having flatus but still no bowel movement. Abdomen was soft nontender. Incision was clean and dry. Patient will be discharged home on Augmentin 875 twice a day. Her blood sugars remained elevated therefore the hospitalist is planus in her on Lantus Exam - Vitals Vital Signs: Vital Signs Temperature 97 F Temperature Source Temporal Artery Scan Pulse Rate [Apical] 100 Pulse Rate [Pulse Oximeter] 104 Pulse Rate 104 Respiratory Rate 16 Blood Pressure [Right Arm] 141/82 Blood Pressure [Left Arm] 143/87 Blood Pressure 159/93 Pulse Ox 93 Oxygen Flow Rate 1 Oxygen Delivery Method Room Air Height 5 ft 5 in Weight 194 lb Patient Problems - Patient Problem List (1) Appendicitis Current Visit: Yes Status: Acute Code(s): K37 - Unspecified appendicitis Category: Medical (2) Appendicitis, acute, with generalized peritonitis Current Visit: Yes Status: Acute Code(s): K35.20 - Acute appendicitis with generalized peritonitis, without abscess Category: Medical
--- NOTE | 2018-11-15 11:19 | PDOC(PROG) ---
Date of Service: 11/15/18 Time of Service: 11:15 Interval History: no chest pain, no shortness of breath, no nausea/vomiting. She states her abdominal pain is controlled. She has had some problems with constipation we gave her a dose of milk of magnesia. In terms of her diabetes, she states that her just got insurance and she thinks that it will kick in here soon. She is hoping that that happens so that she can hopefully get her Lantus. Objective : Data - Labs CBC and BMP: 11/15/18 07:20 11/15/18 07:20 Objective : Exam - General General Appearance: No Acute Distress, Cooperative Additional General Exam Details: Vital Signs - Last Taken Temperature 97 F 11/15/18 07:38 Pulse Rate 104 H 11/15/18 07:38 Respiratory Rate 16 11/15/18 07:38 Blood Pressure 141/82 11/15/18 07:38 Pulse Ox 93 11/15/18 07:38 - Head Head Exam: Normal Inspection, Normocephalic, Atraumatic - Eye Eye Exam: No Scleral Icterus - ENT ENT Exam: Mucous Membranes Moist - Respiratory Respiratory Exam: Clear to Auscultation - Bilaterally, Breathing Non Labored - Cardiovascular Cardiovascular Exam: RRR, No Murmur, No Clicks, No Gallops, No Rubs, No JVD - GI/Abdominal GI/Abdominal Exam: Normal Bowel Sounds, Non Tender, Non Distended, Soft - Extremities Extremities Exam: No Clubbing Present, No Edema Present, No Cyanosis Present - Neurological Neurological Exam: Alert, Oriented x 3, No Facial Droop, Speech Intact / Clear, Moves All Extremities Equally Assessment and Plan - Patient Problems (1) Diabetes mellitus Current Visit: Yes Status: Acute Code(s): E11.9 - Type 2 diabetes mellitus without complications Qualifiers: Diabetes mellitus type: type 2 Diabetes mellitus rn long term care insulin use: franca escobar rn long term care use Diabetes mellitus complication status: without complication Qualified Code(s): E11.9 - Type 2 diabetes mellitus without complications (2) Appendicitis Current Visit: Yes Status: Acute Code(s): K37 - Unspecified appendicitis - Assessment / Plan Additional Assessment/Plan Details: I'll get her a 90 day prescription for Lantus and have her dose of 20 units daily at bedtime. Looking at her blood sugars I think this would be reasonable as she is about the 190s to low 200s. She will need further adjustments as an outpatient. Potassium, 40 mEq given today and I'll write for another 40 mEq prior to discharge. Discharged as per surgery. From my standpoint, I think the diabetes can be followed as an outpatient and I would recommend a basic metabolic panel be done in about a week. Thank you for this consult. Hospitalist service will sign off.
[2018-11-15] MEDS ORDERED: POTASSIUM CHLORIDE 20 MEQ TAB PO ONE (11:31)
[2018-11-15 11:45] LABS: BAND NEUTROPHILS % 4 % (0-10); BASOPHILS % (MANUAL) 0 % (0-1); EOSINOPHILS % (MANUAL) 2 % (0-8); MONOCYTES % (MANUAL) 8 % (0-12); NEUTROPHILS % (MANUAL) 75 % (50-80)
[2018-11-19 16:58] VITALS: BP 141/82; RESP 16; TEMP 97; O2SAT 93
== END 2018-11-15 11:55 | disposition home or self-care (01) | DRG 343 ==
LOC: ER 21:23 → OPS 11-10 00:03 → OR 11-10 00:03 → OPS 11-10 02:58 → MED/SURG 11-10 03:03
PROVIDERS: ADMIT Surgery; ATTEND Surgery